=== PATIENT | female | born 1960 | race Caucasian/White ===

== ENCOUNTER → 2016-04-29 | Day surgery (SDC) | payer OTHER ==
--- NOTE | 2016-04-28 16:04 | History & Physical Pre-Op ---
General Information and HPI History of Present Illness: patient presents for evaluation of an incisional hernia. She states the hernia has been present for at least 3 years. She has a past surgical history significant for laparoscopic Eva-en-Y bypass, open in 2007. She had failure of weight loss and subsequently underwent lap band over bypass [place] [address] Pierre Welch. Since then she has been observed and notes no change to the hernia. She hears gurgling in the hernia no pain. No change to her bowel function. She occasionally gets nausea and vomiting but she attributes it to over eating. Allergies/Medications Allergies: Coded Allergies: aspirin (CONJUNCTIVAL SWELLING 04/23/16) cephalexin (From KEFLEX) (RASH 04/23/16) Uncoded Allergies: SEEDS (UNKNOWN 02/15/13) Home Med list Amitriptyline HCl 25 MG TABLET 1 TAB PO QPM TMJ (Reported) Bupropion HCl (Wellbutrin XL) (Unknown Strength) TAB.ER.24H (Unknown Dose) PO QPM DEPRESSION (Reported) Escitalopram Oxalate (Lexapro) 20 MG TABLET 1 TAB PO QPM DEPRESSION (Reported ) Multivitamin (Multi-Day Vitamins) 1 EACH TABLET 1 TAB PO DAILY SUPPLEMENT ( Reported) Tramadol HCl (Ultram) 50 MG TABLET 1 TAB PO PRN PAIN (Reported) Past History Medical History Psychiatric: anxiety History of MRSA: No History of VRE: No History of CDIFF: No Isolation History: Standard Influenza Vaccine: 01/28/13 Surgical History Pertinent Surgical History: none (laparoscopic gastric bypass), , laparoscopic gastric bypass Past Family/Social History Family History Relations & Conditions if any MOTHER Relation not specified for: FHx: lung cancer Psychosocial History Services at Home None Smoking Status: Never Smoked Review of Systems Review of Systems: Patient reports weight gain (50lbs) but reports no fatigue, no fever, no night sweats, no significant weight loss, and no exercise intolerance. She reports no abnormal moles, no jaundice, no hives, no eczema, and no rashes. She reports no dry eyes, no irritation, no vision change, and no discharge. She reports no hearing loss, no ear pain, no sneezing, no frequent nosebleeds, no nose/sinus problems, no bleeding gums, no snoring, no dry mouth, no mouth ulcers, no oral abnormalities, no teeth problems, no headaches, and no sore throat. She reports no cough, no wheezing, no shortness of breath, and no coughing up blood. She reports no chest pain, no arm pain on exertion, no shortness of breath when walking, no shortness of breath when lying down, no palpitations, and no leg swelling. She reports no abdominal pain, no vomiting, no vomiting blood, normal appetite, no diarrhea, no constipation, no rectal bleeding, and no history of GERD. She reports no incontinence, no difficulty urinating, no hematuria, and no increased frequency. She reports no muscle aches, no muscle weakness, no arthralgias/joint pain, and no back pain. Exam & Diagnostic Data Last 24 Hrs of Vital Signs/I&O Patient is a 55-year-old female. Constitutional: General Appearance: morbidly obese. Level of Distress: no acute distress. Ambulation: ambulating normally. Head: Head: normocephalic and atraumatic. Neck: Neck: supple, trachea midline, no masses, and full range of motion. Thyroid: no enlargement or nodules and non-tender. Lymph Nodes: no cervical LAD, supraclavicular LAD, axillary LAD, or inguinal LAD. Cardiovascular: Heart Auscultation: regular rate and rhythm. Lungs: Respiratory effort: no dyspnea. Back: Thoracolumbar Appearance: normal curvature. Abdomen: Inspection and Palpation: no tenderness, guarding, masses, rebound tenderness, or CVA tenderness and soft and non-distended. Bowel Sounds: normal. Liver: non-tender and no hepatomegaly. Spleen: non-tender and no splenomegaly. Hernia: incisional (epigastric hernia with bowel contents. It is reducible. Fascial defect measures 5 cm. Palpable lap band port in the right upper quadrant ). Skin: Inspection and palpation: no rash, lesions, ulcer, induration, nodules, jaundice, or abnormal nevi and good turgor. Musculoskeletal:: Extremities: no cyanosis, edema, varicosities, or palpable cord. Motor Strength and Tone: normal tone and motor strength. Joints, Bones, and Muscles: no contractures, malalignment, tenderness, or bony abnormalities and normal movement of all extremities. Assessment/Plan Assessment/Plan: Incisional hernia - recommend laparoscopic repair with mesh. She was like to plan for surgical repair in early April. She will call in March to schedule surgery K43.2: Incisional hernia without obstruction or gangrene Discussion Notes Discussed the pathophysiology of hernias and the need for mesh repair. He understands the permanent nature of mesh. Discussed the risks of surgery including recurrence of the hernia, bleeding and infection. He understands that if mesh infection occurs, removal will necessary. He understands the need for general anesthesia. Discussed emergent complications of oberved hernias including increasing pain, distention, nausea and vomiting. Discussed erythema of hernia site as well. Patient understands to call me urgently or go to ER should these findings develop. As Ranked By This Provider Problem List: 1. Incisional hernia
[~2016-04-29] VITALS: Ht 160 cm; Wt 131.5 kg
[~2016-04-29] MED LIST: AMITRIPTYLINE H25 M2 PO; AUGMENTIN 875-1 EACH PO; LEXAPRO20 M1 PO; MULTI-DAY VITA1 EACH PO; PERCOCET 5-3251 EACH PO; ULTRAM50 M1 PO; WELLBUTRIN XL300 M2 PO
--- NOTE | 2016-04-29 13:43 | Operative Report ---
Operative/Inv Procedure Report Surgery Date: 04/29/16 Name of Procedure: 1. Laparoscopic incisional hernia repair 2. Laparoscopic incarcerated umbilical hernia repair Pre-Operative Diagnosis: Incisional hernia Post-Operative Diagnosis: Same Large incarcerated periumbilical hernia Estimated Blood Loss: less than 50ml Surgeon/Superintendent [employer]: JUAN MCCARTY,JANA Das/Hiro CALDERA Anesthesia: general endotracheal tube Implants: 15 cm Parietex mesh to cover the epigastric incisional hernia 12 cm Parietex mesh to repair the incarcerated periumbilical hernia Operative/Procedure Note Note: After consent is brought to the operating room laid supine. Gen. anesthesia was obtained and her abdomen was prepped and draped. The left upper quadrant was able to local anesthesia and a transverse incision. We gained access to the peritoneum using a 12 mm optical trocar. Pneumoperitoneum was achieved. 2, 5 mm ports were placed in the left lower quadrant after local anesthesia instilled under direct vision the camera. The abdomen was explored. Visualization was difficult due to her morbid obesity and high insufflation pressures require to insufflate her abdomen. There was a very large epigastric incisional hernia related to her prior gastric bypass. There is also a visible lap band catheter that obscured our view. His able to dissect some bowel off the abdominal wall sharp dissection to allow the catheter to follow more superiorly. Inferior to the main incisional defect there was a separate periumbilical hernia with incarcerated omentum. First dissected the epigastric site. The adhesions were taken down with cautery and sharp dissection. There were 3 fascial defects the largest of which was 5 cm in diameter. There are 2 other fascial defects superior to this both measuring 1.5-2 cm. Everything was reduced out of these defects and the peritoneum cleared of intraperitoneal fat to expose healthy fascia. Then turned attention to the umbilical hernia. This was the more difficult hernia to reduce as there was a large amount of incarcerated omentum through multiple fascial defects. Eventually we amputated the tissues and then delivered the incarcerated contents with blunt dissection. All the extracted fatty tissue was then placed in Endo Catch bag and delivered from the perineal cavity. We measured the defects. 2 ideally cover both hernia defects with single piece of mesh would require a 25 x 15 cm mesh. However the largest measuring had was 25 x 20 and it would be a little bit too wide to place in her abdominal cavity. So elected to repair each hernia defect individually. A 15 cm Parietex was mesh was chosen for the epigastric incisional hernia. A 12 cm Parietex mesh was chosen for the periumbilical defect. Both had 0 [place]-Ven[place]h sutures anchored to them. Each hydrated rolled up and placed the perineal cavity. The transfixion sutures were then brought up percutaneously through the abdominal wall in a sequential fashion. She was then tied down mesh was properly positioned on each defect. Both mesh were then circumferentially adhered to the abdominal wall with the absorbable tackers in a double crown fashion. Once were happy the placement of mesh the gas was allowed to escape. Ports were delivered and the fascia was closed 0 Vicryl suture. Skin incisions closed with 4-0 Vicryl. Steri-Strips and sterile dressing applied. Sponge and needle counts are correct Findings: Two separate/distinct fascial defects requiring individual repair CC: EDEL MCCARTY,DEE Victoria
== END ==
LOC: STS 01:46
DX: K43.2 Incisional hernia without obstruction or gangrene (principal); K42.0 Umbilical hernia with obstruction, without gangrene; Z98.84 Bariatric surgery status; E66.01 Morbid (severe) obesity due to excess calories; Z68.43 Body mass index [BMI] 50.0-59.9, adult
CPT/HCPCS: C1781; J0131; J1100; J2250; J2405

== ENCOUNTER 2016-06-08 16:12 | Inpatient (IN) | payer OTHER ==
[~2016-06-08] VITALS: Ht 160 cm; Wt 152.9 kg
[~2016-06-08 16:12] MED LIST changes: -AUGMENTIN 875-1 EACH PO; -PERCOCET 5-3251 EACH PO
--- NOTE | 2016-06-08 16:39 | NUR ---
C/O LEFT LOWER QUADRANT ABDOMINAL PAIN X 3 HOURS WITH NAUSEA, NO VOMITING OR DIARRHEA. S/P HERNIA REPAIR TO STOMACH AND UMBILICAL AREA BY DR. MARTINEZ. (1 MONTH AGO). PMH:GASTRIC BYPASS, LAP BAND.
--- NOTE | 2016-06-08 17:25 | NUR ---
VERENICE CAI EVALUATED PT
--- NOTE | 2016-06-08 17:31 | ED GI/GU/ABDOMINAL COMPLAINT ---
History of Present Illness General Chief Complaint: Abdominal Pain/Flank Pain Stated Complaint: LOWER LT ABDOMINAL PAIN Source: patient Exam Limitations: no limitations Vital Signs & Intake/Output Vital Signs & Intake/Output Vital Signs Date Time Temp Pulse Resp B/P Pulse O2 O2 Flow FiO2 Ox Delivery Rate 06/11 0400 95 Nasal 1.0L Cannula 06/11 0000 100 Nasal 1.0L Cannula 06/11 0000 98.3 100 16 92/58 100 Nasal 1.0L Cannula 06/10 2000 95 Room Air Room Air 06/10 1600 94 Room Air Room Air 06/10 1600 97.6 108 22 94/52 96 Room Air Room Air 06/10 1200 97 Nasal 1.0L Cannula ED Intake and Output 06/11 0000 06/10 1200 Intake Total 2641 2010 Output Total 920 390 Balance 1721 1621 Intake, IV 2631 2010 Intake, Oral 10 0 Number 0 0 Bowel Movements Output, 95 50 Drainage Output, Stool 10 Output, Urine 815 340 Allergies Coded Allergies: aspirin (CONJUNCTIVAL SWELLING 04/23/16) cephalexin (From KEFLEX) (RASH 04/23/16) Uncoded Allergies: SEEDS (UNKNOWN 02/15/13) Reconcile Medications Amitriptyline HCl 25 MG TABLET 1 TAB PO QPM TMJ (Reported) Bupropion HCl (Wellbutrin XL) (Unknown Strength) TAB.ER.24H (Unknown Dose) PO QPM DEPRESSION (Reported) Escitalopram Oxalate (Lexapro) 20 MG TABLET 1 TAB PO QPM DEPRESSION (Reported ) Multivitamin (Multi-Day Vitamins) 1 EACH TABLET 1 TAB PO DAILY SUPPLEMENT ( Reported) Oxycodone HCl/Acetaminophen (Percocet 5-325 MG Tablet) 5 MG-325 MG TABLET 2 TAB PO 4 TIMES/DAY PAIN (Reported) Tramadol HCl (Ultram) 50 MG TABLET 1 TAB PO PRN PAIN (Reported) Triage Note: C/O LEFT LOWER QUADRANT ABDOMINAL PAIN X 3 HOURS WITH NAUSEA, NO VOMITING OR DIARRHEA. S/P HERNIA REPAIR TO STOMACH AND UMBILICAL AREA BY DR. MARTINEZ. (1 MONTH AGO). Triage Nurses Notes Reviewed? yes ? N Is pt currently ? No Onset: Gradual Duration: hour(s): (4) Timing: remote history Quality/Severity: sharpness Severity Numbers: 8 Location: left lower quadrant Radiation: no radiation Activities at Onset: none Prior Abdominal Problems: similar symptoms Past Sexual History: Unobtainable at this time No Modifying Factors: none HPI: Patient is a 55-year-old female with history of diverticulitis presenting to the emergency department with chief complaint of left lower quadrant abdominal pain that started around 1 PM today. She reports it started in the periumbilical region and then migrated to the left lower quadrant. Pain has been constant sharp and stabbing. Positive nausea without vomiting. Denies fevers or chills. Denies chest pain palpitations or shortness of breath. She tried taking leftover Percocet which has not improved her pain. Denies any diarrhea. History of diverticulitis and this feels similar (RORO MARIO) Past History Travel History Traveled to [place] past 21 day No Medical History Any Pertinent Medical History? see below for history History of MRSA: No History of VRE: No History of CDIFF: No Influenza Vaccine: 01/28/13 Surgical History Surgical History: non-contributory Psychosocial History Who do you live with Spouse Services at Home None What is your primary language Micronesian Tobacco Use: Never used ETOH Use: denies use Family History Family History, If Any: MOTHER Relation not specified for: FHx: lung cancer Hx Contributory? No (RORO MARIO) Review of Systems Review of Systems Constitutional: Reports: no symptoms. Comments Review of systems: See HPI, All other systems negative. Constitutional, no chills fever or weight loss HEENT: No visual changes no sore throat no congestion Cardiovascular: No chest pain ,palpitation , orthopnea or ankle swelling Skin, no jaundice no rashes Respiratory: No dyspnea cough sputum or hemoptysis GI: no vomiting : No dysuria No hematuria Muscle skeletal: no back pain, no neck pain, Neurologic: No numbness no confusion, no headaches Psych: No stress anxiety Immunology: No splenectomy or history of AIDS (RORO MARIO) Physical Exam Physical Exam General Appearance: well developed/nourished, no apparent distress, alert, awake , comfortable Gastrointestinal: normal bowel sounds, soft, guarding, tenderness Comments: Well-developed well-nourished person in no acute distress HEENT: Pupils equally round and reactive to light and accommodation. Nose is atraumatic. Neck: Normal inspection Back: Nontender, no CVA tenderness. Full range of motion Cardiovascular: Regular rate and rhythms no murmurs rubs or gallops, normal JVP Respiratory: Chest nontender. No respiratory distress.breath sounds clear to auscultation bilaterally Abdomen: Soft, tender to palpation OF lower quadrant with moderate guarding, no rebound tenderness. Nondistended, no appreciable organomegaly. HYPOACTIVE bowel sounds. Large ventral hernia palpated in the middle aspect of the abdomen with seroma. Extremity: No edema Neuro: Alert oriented x3 Skin: No appreciable rash on exposed skin, skin is warm and dry. Psych: Mood and affect is normal, memory and judgment is normal. Core Measures ACS in differential dx? No Severe Sepsis Present: Yes BC x2: Yes Lactic Acid x2: Yes IV ABX Broad Spectrum: Yes NS/LR Started: Yes Septic Shock Present: No (TRELL CALDERA,RORO) Progress Differential Diagnosis: DIVERTICULITIS, DIVERTICULOSIS, OVARIAN CYSTS, HERNIA, COLITIS Plan of Care: Orders Procedure Date/time Status Nothing by Mouth 06/10 D Active THERAPIST ORDERS 06/10 UNK Complete PT Evaluate & Treat 06/10 UNK Active Misc Message 06/10 UNK Active MISSING MEDICATION FORM 06/10 UNK Active Current Medications Sig/Emmett Start time Last Medication Dose Stop Time Status Admin Acetaminophen 1,000 MG Q6P PRN 06/09 0545 AC (Ofirmev) Ondansetron HCl 4 MG Q6P PRN 06/09 0545 AC (Zofran) Laboratory Tests 06/11/16 0840: CBC w Diff NO MAN DIFF REQ, RBC 3.47 L, MCV 86.7, MCH 28.3, RDW 14.6 H, MPV 8.2, Gran % 83.0 H, Lymphocytes % 9.5 L, Monocytes % 5.2, Eosinophils % 2.0, Basophils % 0.3, Absolute Granulocytes 6.0, Absolute Lymphocytes 0.7 L, Absolute Monocytes 0.4, Absolute Eosinophils 0.1, Absolute Basophils 0, PUBS MCHC 32.7 L 06/11/16 0510: Anion Gap 5, Estimated GFR > 60, Glucose 94, Calcium 7.2 L, Phosphorus 2.2 L, Magnesium 2.0, Total Bilirubin 0.6, AST 17, ALT 27, Albumin 1.9 L Patient with perforated power, free air. Will go to the OR, then to ICU. Dr. Burgos evlauted patient in the ED. Broad spectrum abx started. (BRADLY MCCARTY,PACO) Diagnostic Imaging: Viewed by Me: CT Scan. Discussed w/RAD: CT Scan. Radiology Impression: PATIENT: MUNIR SHAH PRESENT AGE: 55 PATIENT ACCOUNT NO: [id number] : 59 LOCATION: [facility] ORDERING PHYSICIAN: RORO CALDERA SERVICE DATE: 06/08/16 EXAM TYPE: CAT - CT ABD & PELVIS W IV CONTRAST EXAMINATION: CT ABDOMEN AND PELVIS WITH CONTRAST CLINICAL INFORMATION: Left lower quadrant pain. Nausea. Past history of hernia surgery. History of Lap-Band surgery. COMPARISON: None TECHNIQUE: Multidetector volumetric imaging was performed of the abdomen and pelvis before and after the IV administration of 95 mL of Optiray 320 intravenous contrast. Sagittal and coronal reformatted images were obtained on the technologist's workstation. DLP: 1407.62 mGy-cm FINDINGS: LUNG BASES: The visualized lung bases are unremarkable. LIVER, GALLBLADDER, AND BILIARY TREE: The liver is normal in size, shape, and attenuation. No focal hepatic lesion or biliary ductal dilatation is present. Status post cholecystectomy. No bile duct dilatation. Extrahepatic CBD measures 6 mm. No calcified stone within the duct. PANCREAS: Unremarkable. SPLEEN: Unremarkable. ADRENAL GLANDS: Unremarkable. KIDNEYS AND URETERS: The kidneys are normal in size, shape, and attenuation. No hydronephrosis, hydroureter, or calculi are seen. No perinephric stranding. BLADDER: Unremarkable. GASTROINTESTINAL TRACT, ABDOMINAL WALL/MESENTERY: A small amount of free fluid in the abdomen. Fluid collects around the liver and causes a hazy mesenteric edema in the mid mesentery. There is a ventral wall hernia that has the largest collection of fluid in the upper central abdomen. This collection is about 12 cm cephalad to the umbilicus. The collection measures 7.7 x 5.1 x 8.5 cm. This has a small fat fluid level within the hernia sac. There is edema in the subcutaneous tissues around the umbilicus. There is free air in the abdomen. In the left lower quadrant, there is an irregular collection suspicious for an abscess measuring 8 x 5.6 x 9.6 cm (axial image 438 (3) and coronal image 43). This does lie close to the descending colon and sigmoid where there are diverticula; suspect the collection is related to a perforated diverticulitis therefore. There is surrounding edema in the mesentery around this collection. Gastric band present. This is in good position around the cardia of the stomach. Slight dilatation of the distal esophagus as expected for gastric band placement. The appendix is normal. LYMPH NODES: Small mesenteric and retroperitoneal lymph nodes. No bulky lymphadenopathy. VASCULAR: IVC filter present. PELVIC VISCERA: Uterus is anteverted. No adnexal abnormality. OSSEOUS STRUCTURES: Bridging degenerative osteophytes of the lower thoracic spine. IMPRESSION: 1. Free air. There are focal inflammatory changes of the mesentery in the left lower quadrant surrounding a collection that is suspicious for perforated diverticulitis with localized abscess. 2. Small amount of free fluid. 3. Large collection of fluid in a ventral wall hernia cephalad to the umbilicus at the midline. 4. Status post gastric band in good position. 5. Status post cholecystectomy. Initial ED EKG: SINUS TACHY Comments: 06/08/2016 5:41:41 PM arrival patient medicated with IV morphine, IV Zofran and IV fluids. Patient will go for CT to rule out diverticulitis. Patient has history of diverticulitis in the past. He fluid initiated. Patient afebrile. 06/08/2016 6:23:12 PM patient reports that the morphine is helping slightly but would like something stronger. Patient given IV Dilaudid 1 mg. IV fluids still infusing. Still pending CT results. Patient has no elevation in white blood cell count. Lactic acid is negative. 06/08/2016 8:33:45 PM spoke with radiology who called regarding CT scan results. Patient has perforated diverticulitis with abscess collection. Called Donnie Burgos MD visualized the CAT scan. Patient will likely need to go to the operating room for perforated diverticulitis. IV Unasyn started at this time secondary to allergy to cephalosporins. Patient was updated informed about possible outcomes. Surgical physician assistant quality manager page. Patient now spiking a fever. IV Tylenol ordered. 06/08/2016 9:15:06 PM added on PT PTT, type and screen. Also added on EKG and chest x-ray. Patient was seen and evaluated by Dr. Contreras as well. (TRELL CALDERA,RORO) Departure Departure Disposition: STILL A PATIENT Condition: Stable Clinical Impression Primary Impression: Diverticulitis of colon with perforation Referrals: DEE HOLLINGSWORTH MD (PCP/Family) Departure Forms: Customer Survey General Discharge Information OR/GI Note Spoke With: DONNIE BURGOS MD ED Treatment Decision: MUNIR SHAH requires urgent operative management or an emergent procedure that cannot be performed in the Emergency Room setting. Transport To: [facility] (RORO MARIO) PA/COOLER SERVICE SUPERVISOR Co-Sign Statement Statement: ED Attending supervision documentation- [X] I saw and evaluated the patient. I have also reviewed all the pertinent lab results and diagnostic results. I agree with the findings and the plan of care as documented in the PA's/COOLER SERVICE SUPERVISOR's documentation. [X] I have reviewed the ED Record and agree with the PA's/COOLER SERVICE SUPERVISOR's documentation. [] Additions or exceptions (if any) to the PAs/COOLER SERVICE SUPERVISOR's note and plan are summarized below: [] (PACO CONTRERAS MD) Critical Care Note Critical Care Note Critical Care Time: 75-104 min (RORO MARIO) Departure Departure Disposition: STILL A PATIENT Condition: Stable Clinical Impression Primary Impression: Diverticulitis of colon with perforation Referrals: DEE HOLLINGSWORTH MD (PCP/Family) Departure Forms: Customer Survey General Discharge Information OR/GI Note Spoke With: DONNIE BURGOS MD ED Treatment Decision: MUNIR SHAH requires urgent operative management or an emergent procedure that cannot be performed in the Emergency Room setting. Transport To: [facility] (RORO MARIO) PA/COOLER SERVICE SUPERVISOR Co-Sign Statement Statement: ED Attending supervision documentation- [X] I saw and evaluated the patient. I have also reviewed all the pertinent lab results and diagnostic results. I agree with the findings and the plan of care as documented in the PA's/COOLER SERVICE SUPERVISOR's documentation. [X] I have reviewed the ED Record and agree with the PA's/COOLER SERVICE SUPERVISOR's documentation. [] Additions or exceptions (if any) to the PAs/COOLER SERVICE SUPERVISOR's note and plan are summarized below: [] (PACO CONTRERAS MD) Critical Care Note Critical Care Note Critical Care Time: 75-104 min (RORO MARIO)
[2016-06-08 18:35] LABS: ABSOLUTE BASOPHIL COUNT 0 /CUMM (0.0-0.2); ABSOLUTE EOSINOPHIL COUNT 0 /CUMM (0.0-0.7); ABSOLUTE GRANULOCYTE CT 6.6 /CUMM (1.4-6.5); ABSOLUTE LYMPH COUNT 0.4 /CUMM (1.2-3.4); ABSOLUTE MONOCYTE COUNT 0.4 /CUMM (0.10-0.60); BASOPHIL % 0 % (0.0-2.0); EOSINOPHIL % 0.1 % (0-5); HEMATOCRIT 42.9 % (37-47); MEAN CORPUSCULAR HGB 27.9 PG (27.0-31.0); MEAN CORPUSCULAR HGB CONC 32.4 G/DL (33.0-37.0); MEAN CORPUSCULAR VOLUME 86.2 FL (81.0-99.0); MEAN PLATELET VOLUME 8.7 FL (7.4-10.4); PLATELET COUNT 217 /CUMM (130-400); RBC DISTRIBUTION WIDTH 14.1 % (11.5-14.5); RED BLOOD CELL CT 4.98 /CUMM (4.20-5.40); WHITE BLOOD CELL COUNT 7.4 /CUMM (4.8-10.8)
[2016-06-08 18:36] LABS: GRANULOCYTE % 88.9 % (42.2-75.2)
--- NOTE | 2016-06-08 18:38 | NUR ---
IV ESTBLISHED. MEDICATED WITH 4MG ZOFRAN FOR NAUSEA AND 2MG MORPHINE FOR PAIN. WILL CONTINUE TO MONITOR
[2016-06-08] MEDS ORDERED: PERCOCET 5-3251 EACH PO (18:51)
--- NOTE | 2016-06-08 19:35 | NUR ---
PT TO AND FROM CT
--- NOTE | 2016-06-08 21:00 | CT SCAN REPORT ---
EXAMINATION: CT ABDOMEN AND PELVIS WITH CONTRAST CLINICAL INFORMATION: Left lower quadrant pain. Nausea. Past history of hernia surgery. History of Lap-Band surgery. COMPARISON: None TECHNIQUE: Multidetector volumetric imaging was performed of the abdomen and pelvis before and after the IV administration of 95 mL of Optiray 320 intravenous contrast. Sagittal and coronal reformatted images were obtained on the technologist's workstation. DLP: 1407.62 mGy-cm FINDINGS: LUNG BASES: The visualized lung bases are unremarkable. LIVER, GALLBLADDER, AND BILIARY TREE: The liver is normal in size, shape, and attenuation. No focal hepatic lesion or biliary ductal dilatation is present. Status post cholecystectomy. No bile duct dilatation. Extrahepatic CBD measures 6 mm. No calcified stone within the duct. PANCREAS: Unremarkable. SPLEEN: Unremarkable. ADRENAL GLANDS: Unremarkable. KIDNEYS AND URETERS: The kidneys are normal in size, shape, and attenuation. No hydronephrosis, hydroureter, or calculi are seen. No perinephric stranding. BLADDER: Unremarkable. GASTROINTESTINAL TRACT, ABDOMINAL WALL/MESENTERY: A small amount of free fluid in the abdomen. Fluid collects around the liver and causes a hazy mesenteric edema in the mid mesentery. There is a ventral wall hernia that has the largest collection of fluid in the upper central abdomen. This collection is about 12 cm cephalad to the umbilicus. The collection measures 7.7 x 5.1 x 8.5 cm. This has a small fat fluid level within the hernia sac. There is edema in the subcutaneous tissues around the umbilicus. There is free air in the abdomen. In the left lower quadrant, there is an irregular collection suspicious for an abscess measuring 8 x 5.6 x 9.6 cm (axial image 438 (3) and coronal image 43). This does lie close to the descending colon and sigmoid where there are diverticula; suspect the collection is related to a perforated diverticulitis therefore. There is surrounding edema in the mesentery around this collection. Gastric band present. This is in good position around the cardia of the stomach. Slight dilatation of the distal esophagus as expected for gastric band placement. The appendix is normal. LYMPH NODES: Small mesenteric and retroperitoneal lymph nodes. No bulky lymphadenopathy. VASCULAR: IVC filter present. PELVIC VISCERA: Uterus is anteverted. No adnexal abnormality. OSSEOUS STRUCTURES: Bridging degenerative osteophytes of the lower thoracic spine. IMPRESSION: 1. Free air. There are focal inflammatory changes of the mesentery in the left lower quadrant surrounding a collection that is suspicious for perforated diverticulitis with localized abscess. 2. Small amount of free fluid. 3. Large collection of fluid in a ventral wall hernia cephalad to the umbilicus at the midline. 4. Status post gastric band in good position. 5. Status post cholecystectomy. This critical result was discussed with VERENICE Garcia on 06/08/2014 at 8:15 PM and it was ascertained that the content and urgency of the report was understood at the time of direct communication.
[2016-06-08 21:59] LABS: PT 11.8 SEC (9.4-12.5); PTT 30 SEC (25-37)
--- NOTE | 2016-06-08 22:14 | NUR ---
LACTIC ACID 2.4
--- NOTE | 2016-06-08 22:19 | RADIOLOGY REPORT ---
EXAMINATION: XR PORTABLE CHEST CLINICAL INFORMATION: Preop COMPARISON: None TECHNIQUE: Portable AP portable view of the chest was obtained. 9:34 PM FINDINGS: No significant abnormality is noted involving the heart, lungs, mediastinum, bony thorax or soft tissues. IMPRESSION: No acute change of chest.
--- NOTE | 2016-06-08 22:59 | History & Physical Pre-Op ---
General Information and HPI History of Present Illness: CC: abdominal pain HPI: 55-year-old nondiabetic nonsmoker with a history of gastric bypass lap band and more recently microscopic mesh repair of a large ventral incisional hernia, a little over a month ago, was doing well overall no constipation no fevers no sweats no unusual abdominal pain other than the soreness expected from the trocar sites, and she has a remote history of diverticulitis over 10 years ago. Today around 1:00 after having a small exam which she felt some gas pains which traveled to her left side persisted and intensified so she came to the ER. This did not feel like her diverticulitis episodes in the past. Pain is constant and worse on movement but still localized only to the left side of her abdomen no nausea no vomiting no on the ER she is having fever and sweats. Pain does not radiate to her back. Otherwise no changes bowel habits, weight or appetite. I've reviewed the [facility]. No history of GERD, PUD, bleeding problems, heart disease or issues with anesthesia. Allergies/Medications Allergies: Coded Allergies: aspirin (CONJUNCTIVAL SWELLING 04/23/16) cephalexin (From KEFLEX) (RASH 04/23/16) Uncoded Allergies: SEEDS (UNKNOWN 02/15/13) Home Med list Amitriptyline HCl 25 MG TABLET 1 TAB PO QPM TMJ (Reported) Bupropion HCl (Wellbutrin XL) (Unknown Strength) TAB.ER.24H (Unknown Dose) PO QPM DEPRESSION (Reported) Escitalopram Oxalate (Lexapro) 20 MG TABLET 1 TAB PO QPM DEPRESSION (Reported ) Multivitamin (Multi-Day Vitamins) 1 EACH TABLET 1 TAB PO DAILY SUPPLEMENT ( Reported) Oxycodone HCl/Acetaminophen (Percocet 5-325 MG Tablet) 5 MG-325 MG TABLET 2 TAB PO 4 TIMES/DAY PAIN (Reported) Tramadol HCl (Ultram) 50 MG TABLET 1 TAB PO PRN PAIN (Reported) Past History Medical History History of MRSA: No History of VRE: No History of CDIFF: No Influenza Vaccine: 01/28/13 Surgical History Pertinent Surgical History: non-contributory Past Family/Social History Family History Relations & Conditions if any MOTHER Relation not specified for: FHx: lung cancer Psychosocial History Services at Home None ETOH Use: denies use Review of Systems Review of Systems: Constitutional: No fever, sweats or weight loss ENMT: No sore throat Cardiovascular: No chest pain, palpitations or leg swelling Respiratory: No shortness of breath, cough, or sputum or dyspnea on exertion GI: No GERD or bleeding per rectum : No dysuria or hematuria Musculoskeletal: No new muscle weakness, bone or joint pain Skin / Breast: No jaundice, rashes or itching Psychiatric: No history of drug or alcohol abuse no depression or anxiety Hematologic / lymphatic system: No problems with excessive bleeding, bruising, or blood clots Exam & Diagnostic Data Last 24 Hrs of Vital Signs/I&O I reviewed Vital Signs Date Time Temp Pulse Resp B/P Pulse O2 O2 Flow FiO2 Ox Delivery Rate 06/08 2204 140 16 140/68 98 Room Air 06/08 2110 101.8 06/08 203 101.8 125 20 154/93 93 Room Air 06/08 1637 95.9 139 28 104/77 100 Room Air Physical Exam: Constitutional: pleasant, no acute distress, conversant Eyes: sclera anicteric ENMT: ears and nose atraumatic, moist mucous membranes, good dentition, no lip lesions Neck: Supple, trachea is midline, no cervical or supraclavicular adenopathy and no palpable thyromegaly Cardiovascular: S1, S2, no murmurs, no peripheral edema Respiratory: clear to auscultation with normal respiratory effort and no intercostal retractions GI: abdomen soft, tender to light palpation left mid to lower abdomen, guarding, nondistended, no palpable hepatosplenomegaly Extremities / lymphatics: symmetrically warm, free range of motion no peripheral edema, no cervical, supraclavicular, axillary, or inguinal adenopathy Musculoskeletal: Did not evaluate the gait and station, no digital cyanosis, good muscle strength and tone no atrophy, motor grossly 5 out of 5 throughout Skin: no jaundice, no rashes warm, nondiaphoretic, no areas of erythema or induration Psychiatric: mood and affect are appropriate and alert and oriented to person place and time Last 24 Hrs of Labs/Scottie: I reviewed Laboratory Tests 06/08/162146: Lactic Acid 2.4 H 06/08/161844: Urine Color YEL, Urine Clarity HAZY H, Urine pH 6.0, Ur Specific [place] 1.025, Urine Protein NEG, Urine Ketones NEG, Urine Nitrite POS H, Urine Bilirubin NEG, Urine Urobilinogen 0.2, Ur Leukocyte Esterase NEG, Ur Microscopic SEDIMENT EXAMINED, Ur Epithelial Cells MANY H, Urine Hemoglobin NEG, Urine Glucose NEG 06/08/16 1805: Anion Gap 10, Estimated GFR > 60, BUN/Creatinine Ratio 26.7 H, Glucose 129 H, Lactic Acid 1.7, Calcium 8.8, Total Bilirubin 0.9, AST 37 H, ALT 31, Alkaline Phosphatase 103, Total Protein 7.1, Albumin 3.7, Globulin 3.4, Albumin/Globulin Ratio 1.1, PT 11.8, INR 1.13, APTT 30, CBC w Diff NO MAN DIFF REQ, RBC 4.98, MCV 86.2, MCH 27.9, RDW 14.1, MPV 8.7, Gran % 88.9 H, Lymphocytes % 5.8 L, Monocytes % 5.2, Eosinophils % 0.1, Basophils % 0 L, Absolute Granulocytes 6.6 H, Absolute Lymphocytes 0.4 L, Absolute Monocytes 0.4, Absolute Eosinophils 0, Absolute Basophils 0, PUBS MCHC 32.4 L Microbiology 06/08 2099 BLOOD: Blood Culture - RECD 06/08 2049 BLOOD: Blood Culture - RECD Assessment/Plan Assessment/Plan: Studies I reviewed the CT scan from today on PACS myself which shows an irregular collection of gas and semisolid material in the distal descending / proximal sigmoid, there is some surrounding stranding and some of the gas tracks up towards the middle superiorly, she has a long tortuous sigmoid colon. You can see the catheter for the lap band, and you can see the recently placed mesh and subcutaneous seroma. Impression is acute abdomen. I explained to the patient that this is a potentially life-threatening infection for which I recommend a laparotomy probable colostomy because of the location. I feel antibiotics often alone are not enough, she is showing signs of developing sepsis. I also discussed the possibility of a postoperative infection whether superficial or deep, this is also related to the initial severity and may also appear even a week later after an initial interval of well-being during the recovery. I explained the operation which is already a contaminated case and we may encounter more adhesions given the recent surgery also discussed risks of inadvertent injury to surrounding surrounding structures such as bowel and blood vessels and ureter. For example she may need a repeat abdominal washout, discussed the nature of the colostomy initial healing but also that eventually it's reversible. We also discussed the potential risks, benefits and alternatives to the procedure and surgery in general, issues that included but were not limited to, anesthetic risks hemorrhage requiring transfusion, the risk of transfusion itself, infection, heart attack, stroke, . As Ranked By This Provider Problem List: 1. Peritonitis 2. Perforated sigmoid colon
--- NOTE | 2016-06-08 23:01 | NUR ---
MUNIR SHAH Nurse Note by: SON ROUSE I agree with the [employer] IN[employer] findings/evaluation of this patient's condition. Entered by: SON ROUSE Date: 06/08/16 Time: 2126
--- NOTE | 2016-06-09 06:05 | Admission Core Measures ---
Admission Lab Results I reviewed the following labs: Laboratory Tests 06/08 06/08 2147 1845 Chemistry Lactic Acid (0.7 - 2.1 mmol/L) 2.4 H Urines Urine Color (YEL,AMB,STR) YEL Urine Clarity (CLEAR) HAZY H Urine pH (5.0 - 8.0) 6.0 Ur Specific [place] (1.001 - 1.035) 1.025 Urine Protein (NEG,<30 MG/DL) NEG Urine Ketones (NEG) NEG Urine Nitrite (NEG) POS H Urine Bilirubin (NEG) NEG Urine Urobilinogen (0.1 - 1.0 EU/dl) 0.2 Ur Leukocyte Esterase (NEG) NEG Ur Microscopic SEDIMENT EXAMINED Ur Epithelial Cells (NONE,FEW) MANY H Urine Hemoglobin (NEG) NEG Urine Glucose (N MG/DL) NEG 06/08 1805 Chemistry Sodium (137 - 145 mmol/L) 140 Potassium (3.5 - 5.1 mmol/L) 4.4 Chloride (98 - 107 mmol/L) 101 Carbon Dioxide (22 - 30 mmol/L) 29 Anion Gap (5 - 16) 10 BUN (7 - 17 mg/dL) 16 Creatinine (0.5 - 1.0 mg/dL) 0.6 Estimated GFR (>60 ml/min) > 60 BUN/Creatinine Ratio (7 - 25 %) 26.7 H Glucose (65 - 99 mg/dL) 129 H Lactic Acid (0.7 - 2.1 mmol/L) 1.7 Calcium (8.4 - 10.2 mg/dL) 8.8 Total Bilirubin (0.2 - 1.3 mg/dL) 0.9 AST (14 - 36 U/L) 37 H ALT (9 - 52 U/L) 31 Alkaline Phosphatase (<127 U/L) 103 Total Protein (6.3 - 8.2 g/dL) 7.1 Albumin (3.5 - 5.0 g/dL) 3.7 Globulin (1.9 - 4.2 gm/dL) 3.4 Albumin/Globulin Ratio (1.1 - 2.2 %) 1.1 Coagulation PT (9.4 - 12.5 SEC) 11.8 INR (0.90 - 1.19) 1.13 APTT (25 - 37 SEC) 30 Hematology CBC w Diff NO MAN DIFF REQ WBC (4.8 - 10.8 /CUMM) 7.4 RBC (4.20 - 5.40 /CUMM) 4.98 Hgb (12.0 - 16.0 G/DL) 13.9 Hct (37 - 47 %) 42.9 MCV (81.0 - 99.0 FL) 86.2 MCH (27.0 - 31.0 PG) 27.9 RDW (11.5 - 14.5 %) 14.1 Plt Count (130 - 400 /CUMM) 217 MPV (7.4 - 10.4 FL) 8.7 Gran % (42.2 - 75.2 %) 88.9 H Lymphocytes % (20.5 - 51.1 %) 5.8 L Monocytes % (1.7 - 9.3 %) 5.2 Eosinophils % (0 - 5 %) 0.1 Basophils % (0.0 - 2.0 %) 0 L Absolute Granulocytes (1.4 - 6.5 /CUMM) 6.6 H Absolute Lymphocytes (1.2 - 3.4 /CUMM) 0.4 L Absolute Monocytes (0.10 - 0.60 /CUMM) 0.4 Absolute Eosinophils (0.0 - 0.7 /CUMM) 0 Absolute Basophils (0.0 - 0.2 /CUMM) 0 PUBS MCHC (33.0 - 37.0 G/DL) 32.4 L Admission Meds I reviewed the following Meds: Current Medications Sig/Emmett Start time Last Medication Dose Stop Time Status Admin Acetaminophen 1,000 MG Q6P PRN 06/09 544 AC (Ofirmev) Ampicillin Sodium/ 3,000 MG Q6 06/09 599 AC Sulbactam Sodium (Unasyn) Sodium Chloride 100 ML (Normal Saline 0.9%) Dextrose/Sodium 1,000 ML .Q8H 06/09 0445 AC Chloride (D5W-1/2 Normal Saline 1000ML) Heparin Sodium 5,000 UNIT Q8 06/09 599 AC (Porcine) Metronidazole 500 MG ONCE ONE 06/08 2029 CAN (Flagyl) 06/08 2128 N/A 1 UNIT (No Carrier) Ondansetron HCl 4 MG Q6P PRN 06/09 544 AC (Zofran) Sodium Chloride 500 ML BOLUS ONE 06/09 544 AC (Normal Saline 0.9%) 06/09 643 Acute Coronary Syndrome Inclusion Criteria ACS Diagnosis No Inpatient Core Measures LDL Reminder: If No, please order W/I first 24hr of stay Congestive Heart Failure Inclusion Criteria CHF Diagnosis No Cerebrovascular accident Inclusion Criteria CVA/TIA Diagnosis No Inpatient Core Measures Bedside Swallow Eval Reminder: If BSE failed, place ST order Antithrombotic Reminder: Order Antithrombotic Medication by end of day 2 Antithrombotic Reminder: Document Reason Antithrombotic Not ordered by end of day 2 AFIB/Flutter Reminder: If Present, add to problem list AFIB/Flutter Reminder: Order Anticoag Medication for pts with AFIB/Flutter Atherosclerosis Reminder: If Present, add to problem list LDL Reminder: If No, please order W/I first 24hr of stay PT Order Reminder: If No, please order Venous thromboembolism Inpatient Core Measures VTE Risk Factors: Age > 40, Obesity, Surgery VTE Prophylaxis Ordered Inpt Mech & Pharm No Mech VTE prophylaxis d/t No contraindications No VTE Pharm Prophylaxis d/t No contraindications Inclusion Criteria - Per Current guidelines, there needs to be overlap - treatment for the first 5 days of Warfarin therapy. - Parenteral Anticoagulation (IV or SC) needs to be - given along with Warfarin therapy. VTE Diagnosis No VTE Type NONE VTE Confirmed by (Test) NONE Problem List As ranked by this Provider includes Assessment & Plan 1. Perforated sigmoid colon 2. H/O resection of large bowel 3. S/P colostomy HOME MEDS Home Med List Amitriptyline HCl 25 MG TABLET 1 TAB PO QPM TMJ (Reported) Bupropion HCl (Wellbutrin XL) (Unknown Strength) TAB.ER.24H (Unknown Dose) PO QPM DEPRESSION (Reported) Escitalopram Oxalate (Lexapro) 20 MG TABLET 1 TAB PO QPM DEPRESSION (Reported ) Multivitamin (Multi-Day Vitamins) 1 EACH TABLET 1 TAB PO DAILY SUPPLEMENT ( Reported) Oxycodone HCl/Acetaminophen (Percocet 5-325 MG Tablet) 5 MG-325 MG TABLET 2 TAB PO 4 TIMES/DAY PAIN (Reported) Tramadol HCl (Ultram) 50 MG TABLET 1 TAB PO PRN PAIN (Reported)
[2016-06-09 06:36] LABS: ABSOLUTE BASOPHIL COUNT 0 /CUMM (0.0-0.2); ABSOLUTE EOSINOPHIL COUNT 0 /CUMM (0.0-0.7); ABSOLUTE GRANULOCYTE CT 6.5 /CUMM (1.4-6.5); ABSOLUTE LYMPH COUNT 0.5 /CUMM (1.2-3.4); ABSOLUTE MONOCYTE COUNT 0.3 /CUMM (0.10-0.60); BASOPHIL % 0 % (0.0-2.0); EOSINOPHIL % 0.1 % (0-5); GRANULOCYTE % 88.9 % (42.2-75.2); HEMATOCRIT 39.1 % (37-47); MEAN CORPUSCULAR HGB 28.4 PG (27.0-31.0); MEAN CORPUSCULAR HGB CONC 32.8 G/DL (33.0-37.0); MEAN CORPUSCULAR VOLUME 86.4 FL (81.0-99.0); MEAN PLATELET VOLUME 8.3 FL (7.4-10.4); PLATELET COUNT 221 /CUMM (130-400); RBC DISTRIBUTION WIDTH 14.2 % (11.5-14.5); RED BLOOD CELL CT 4.52 /CUMM (4.20-5.40); WHITE BLOOD CELL COUNT 7.3 /CUMM (4.8-10.8)
--- NOTE | 2016-06-09 07:01 | RADIOLOGY REPORT ---
EXAMINATION: XR PORTABLE CHEST CLINICAL INFORMATION: Post surgery intubation COMPARISON: 06/08/2016 TECHNIQUE: Portable AP view of the chest was obtained. FINDINGS: Endotracheal tube tip lies 3.5 cm above the sinan. The lungs are mildly hypoinflated with suspected bibasilar atelectasis. No additional dense consolidation is seen. No evidence of pneumothorax. Trace pleural effusions are difficult to exclude. Cardiac size is somewhat prominent for technique. No acute osseous findings are seen. IMPRESSION: Endotracheal tube tip 3.5 cm above the sinan. Bibasilar atelectasis.
[2016-06-09 08:00] VITALS: BP 110/60
--- NOTE | 2016-06-09 08:45 | NUR ---
Patient c/o 9/10 abdominal pain. SBP=90s-100s per latoya and 98/54 manually. Surgical Jocelyn CORNELIUS called. 1mg IV dilaudid ordered and given. 20 min later, BP 82/ doppler to R arm, 82/54 autocuff to R arm and LATOYA in L arm running SBP=93-99. Patient states pain has improved to 4/10. ADRYAN Banks informed, 500 ml NS bolus ordered and started now. Continuing to monitor.
--- NOTE | 2016-06-09 08:57 | Cons- CRCU ---
SALTY MCCARTY,[facility] 06/09/16 0857: General Information and HPI Consulting Request Date of Consult: 06/09/16 Requested By: Dr. Narayan Reason for Consult: Medical Co-Management/Patient Intubated Source of Information: patient Exam Limitations: patient intubated but awake and alert, at bedside History of Present Illness: 55-year-old woman with a past medical history of laparoscopic Eva-en-Y bypass in 2005, band in 07/04, chronic venous insufficiency, and lower exterimity vein closure in December 2012, non-smoker, microscopic mesh repair of a large ventral incisional hernia, on 04/29/16, has a remote history of diverticulitis over 10 years ago, presented to the ED overnight, aroud 1 am, with abdominal pains, crampy, diffuse, with radiation to the left side, consistent, in fact getting worse, aggravated with movement, not assicaited with nausea or vomiting. Denied fever, chills, chest pain, shortness of breath, palpitations. Denied any constipation prior to this pain. Abd/Pelvic CT scan showed free air, focal inflammatory changes of the mesentery in the left lower quadrant surrounding a collection that is suspicious for perforated diverticulitis with localized abscess. Small amount of free fluid. Large collection of fluid in a ventral wall hernia cephalad to the umbilicus at the midline. She was taken to the OR over night for Small Bowel Obstruction and was found to have the bowels full of stool. Post surgery, she was transferred to the ICU for further managemnet and monitoring. She is still intubated, but alert, awake and oriented, able to communicate with a white board and marker. Allergies/Medications Allergies: Coded Allergies: aspirin (CONJUNCTIVAL SWELLING 04/23/16) cephalexin (From KEFLEX) (RASH 04/23/16) Uncoded Allergies: SEEDS (UNKNOWN 02/15/13) Home Med List: Amitriptyline HCl 25 MG TABLET 1 TAB PO QPM TMJ (Reported) Bupropion HCl (Wellbutrin XL) (Unknown Strength) TAB.ER.24H (Unknown Dose) PO QPM DEPRESSION (Reported) Escitalopram Oxalate (Lexapro) 20 MG TABLET 1 TAB PO QPM DEPRESSION (Reported ) Multivitamin (Multi-Day Vitamins) 1 EACH TABLET 1 TAB PO DAILY SUPPLEMENT ( Reported) Oxycodone HCl/Acetaminophen (Percocet 5-325 MG Tablet) 5 MG-325 MG TABLET 2 TAB PO 4 TIMES/DAY PAIN (Reported) Tramadol HCl (Ultram) 50 MG TABLET 1 TAB PO PRN PAIN (Reported) Current Medications: Current Medications Sig/Emmett Start time Last Medication Dose Route Stop Time Status Admin Acetaminophen 1,000 MG Q6P PRN 06/09 544 AC IV Acetaminophen 0 .STK-MED ONE 06/08 2056 DC IV Acetaminophen 1,000 MG ONCE ONE 06/08 2044 DC 06/08 N/A 1 UNIT IV 06/08 2058 2110 Ampicillin Sodium/ 3,000 MG Q6 06/09 599 AC 06/09 Sulbactam Sodium IV 0633 Sodium Chloride 100 ML Ampicillin Sodium/ 0 .STK-MED ONE 06/08 2053 DC Sulbactam Sodium .ROUTE Ampicillin Sodium/ 3,000 MG ONCE ONE 06/08 2029 DC 06/08 Sulbactam Sodium IV 06/08 2058 2200 Sodium Chloride 100 ML Dextrose/Sodium 1,000 ML .Q8H 06/09 544 AC 06/09 Chloride IV 0530 Heparin Sodium 5,000 UNIT Q8 06/09 06 AC (Porcine) SC Hydromorphone HCl 1 MG Q2-3 HRS NEEDED.. 06/09 0815 AC 06/09 IV 0818 Hydromorphone HCl 1 MG ONCE ONE 06/08 223 DC 06/08 IV 06/08 223 2231 Hydromorphone HCl 0 .STK-MED ONE 06/08 223 DC .ROUTE Hydromorphone HCl 1 MG ONCE ONE 06/08 191 DC 06/08 IV 06/08 191 1905 Hydromorphone HCl 0 .STK-MED ONE 06/08 190 DC .ROUTE Magnesium Sulfate 1 GM ONCE ONE 06/09 0815 AC Dextrose/Water 100 ML IV 06/09 1214 Metronidazole 500 MG ONCE ONE 06/08 2029 CAN N/A 1 UNIT IV 06/08 2128 Morphine Sulfate 0 .STK-MED ONE 06/08 181 DC .ROUTE Morphine Sulfate 2 MG ONCE ONE 06/08 1730 DC 06/08 IV 06/08 1731 1812 Ondansetron HCl 4 MG Q6P PRN 06/09 544 AC IV Ondansetron HCl 0 .STK-MED ONE 06/08 1749 DC .ROUTE Ondansetron HCl 4 MG ONCE ONE 06/08 1730 DC 06/08 IV 06/08 1731 1812 Sodium Chloride 500 ML BOLUS ONE 06/09 0545 DC 06/09 IV 06/09 0644 0540 Sodium Chloride 1,000 ML BOLUS ONE 06/08 2145 DC IV 06/08 2244 Sodium Chloride 1,000 ML BOLUS ONE 06/08 2045 DC IV 06/08 2144 Sodium Chloride 1,000 ML BOLUS ONE 06/08 2030 DC 06/08 IV 06/08 212 2200 Sodium Chloride 1,000 ML BOLUS ONE 06/08 2029 DC / IV 06/08 2128 2110 Sodium Chloride 1,000 ML BOLUS ONE 06/08 1730 DC 06/08 IV 06/08 1829 1744 Review of Systems Review of Systems Constitutional: Reports: see HPI. EENTM: Reports: no symptoms. Cardiovascular: Reports: no symptoms. Respiratory: Reports: no symptoms. GI: Reports: abdominal pain. Denies: constipation, diarrhea, distention, nausea. Genitourinary: Reports: no symptoms. Musculoskeletal: Reports: no symptoms. Neurological/Psychological: Reports: no symptoms. Hematologic/Endocrine: Reports: no symptoms. Past History Travel History Traveled to [place] past 21 day No Medical History Blood Transfusion Hx: No Neurological: NONE EENT: NONE Cardiovascular: IVC FILTER Respiratory: NONE Gastrointestinal: LAP GASTRIC LAP BAND 2013 MESH VENTRAL HERNIA REPAIR 05/10 Hepatic: NONE Renal: NONE Musculoskeletal: NONE Psychiatric: ANXIETY/DEPRESSION Endocrine: NONE Blood Disorders: NONE Cancer(s): NONE MECHANICAL INSULATOR/Reproductive: X2 Surgical History Surgical History: cholecystectomy, hernia repair-ventral, Lap Band, Gastric By pass in 2005 Family History Relations & Conditions If Any: MOTHER Relation not specified for: FHx: lung cancer Psychosocial History Where Do You Live? Home Services at Home: None Smoking Status: Never Smoked ETOH Use: denies use Functional Ability ADLs Independent: dressing, eating, toileting, bathing. Ambulation: independent IADLs Independent: shopping, housework, finances, food prep, telephone, transportation , medication admin. Exam & Diagnostic Data Last 24 Hrs of Vital Signs/I&O Vital Signs Date Time Temp Pulse Resp B/P Pulse O2 O2 Flow FiO2 Ox Delivery Rate 06/09 0800 96 Ventilator 40% 06/09 0730 96 Ventilator 40% 06/09 0522 40 06/08 2204 140 16 140/68 98 Room Air 06/080 101.8 06/08 2036 101.8 125 20 154/93 93 Room Air 06/08 1637 95.9 139 28 104/77 100 Room Air Intake & Output 06/09 1600 06/09 0800 06/09 0000 Intake Total 1000 Output Total Balance 1000 Intake, IV 1000 Patient 328 lb 290 lb Weight Physical Exam General Appearance: alert, awake, comfortable, intubated, obese Head: atraumatic, normal appearance Eyes: Bilateral: normal appearance, PERRL, EOMI. Neck: normal inspection, supple Respiratory: normal breath sounds, chest non-tender, no respiratory distress, lungs clear Cardiovascular: regular rate/rhythm, normal peripheral pulses Peripheral Pulses: 4+ carotid (R), 4+ carotid (L), 4+ radial (R), 4+ radial (L), 4+ tibialis posterior (R), 4+ tibialis posterior (L), 4+ dorsalis pedis (R), 4+ dorsalis pedis (L) Gastrointestinal: normal bowel sounds, soft, tenderness on palpation, diffusely, multiple dressings in place on incisions, colostomy on the left side, bag intact , no signs of infection, stoma clean, drain in place Extremities: normal inspection, normal capillary refill, normal range of motion, no edema Last 48 Hrs of Labs/Scottie: Laboratory Tests 06/09/16 0605: Anion Gap 7, Estimated GFR > 60, Glucose 121 H, Calcium 7.1 L, Phosphorus 3.3, Magnesium 1.2 L, Total Bilirubin 1.5 H, AST 32, ALT 32, Albumin 2.0 L, CBC w Diff MAN DIFF ORDERED, RBC 4.52, MCV 86.4, MCH 28.4, RDW 14.2, MPV 8.3, Gran % 88.9 H, Lymphocytes % 6.3 L, Monocytes % 4.7, Eosinophils % 0.1, Basophils % 0 L, Absolute Granulocytes 6.5, Segmented Neutrophils 59, Band Neutrophils 25 H, Absolute Lymphocytes 0.5 L, Lymphocytes 9 L, Monocytes 6, Absolute Monocytes 0.3, Absolute Eosinophils 0, Absolute Basophils 0, Metamyelocytes 1, Platelet Estimate ADEQUATE, Polychromasia 1+, Hypochromic-Microcytic 1+, Ovalocytes FEW, PUBS MCHC 32.8 L, Fld Total RBCs Counted 100 06/09/16 0600: pH 7.33 L, pCO2 41, pO2 106 H, HCO3 21, ABG O2 Sat (Measured) 96.0, P-50 (Temp Corrected) Y, Carboxyhemoglobin 1.3 L, O2 Concentration % 40%, Temperature 97.6 , Respiration Rate 16, O2 Delivery Method ESPRIT, Vent Mode AC, Expiratory Pressure 5, Tidal Volume 500, Phlebotomy Draw Site COVE 06/08/16 2147: Lactic Acid 2.4 H 06/08/16 1845: Urine Color YEL, Urine Clarity HAZY H, Urine pH 6.0, Ur Specific [place] 1.025, Urine Protein NEG, Urine Ketones NEG, Urine Nitrite POS H, Urine Bilirubin NEG, Urine Urobilinogen 0.2, Ur Leukocyte Esterase NEG, Ur Microscopic SEDIMENT EXAMINED, Ur Epithelial Cells MANY H, Urine Hemoglobin NEG, Urine Glucose NEG 06/08/16 1805: Anion Gap 10, Estimated GFR > 60, BUN/Creatinine Ratio 26.7 H, Glucose 129 H, Lactic Acid 1.7, Calcium 8.8, Total Bilirubin 0.9, AST 37 H, ALT 31, Alkaline Phosphatase 103, Total Protein 7.1, Albumin 3.7, Globulin 3.4, Albumin/Globulin Ratio 1.1, PT 11.8, INR 1.13, APTT 30, CBC w Diff NO MAN DIFF REQ, RBC 4.98, MCV 86.2, MCH 27.9, RDW 14.1, MPV 8.7, Gran % 88.9 H, Lymphocytes % 5.8 L, Monocytes % 5.2, Eosinophils % 0.1, Basophils % 0 L, Absolute Granulocytes 6.6 H, Absolute Lymphocytes 0.4 L, Absolute Monocytes 0.4, Absolute Eosinophils 0, Absolute Basophils 0, PUBS MCHC 32.4 L Diagnostic Data CXR Results 06/08/16 @ 2219: Portable AP portable view of the chest was obtained. 9:34 PM FINDINGS: No significant abnormality is noted involving the heart, lungs, mediastinum, bony thorax or soft tissues. IMPRESSION: No acute change of chest. 06/09/16 @ 0701 Endotracheal tube tip lies 3.5 cm above the sinan. The lungs are mildly hypoinflated with suspected bibasilar atelectasis. No additional dense consolidation is seen. No evidence of pneumothorax. Trace pleural effusions are difficult to exclude. Cardiac size is somewhat prominent for technique. No acute osseous findings are seen. IMPRESSION: Endotracheal tube tip 3.5 cm above the sinan. Bibasilar atelectasis. Other Results Abd/Pevic CT Scan: 1. Free air. There are focal inflammatory changes of the mesentery in the left lower quadrant surrounding a collection that is suspicious for perforated diverticulitis with localized abscess. 2. Small amount of free fluid. 3. Large collection of fluid in a ventral wall hernia cephalad to the umbilicus at the midline. 4. Status post gastric band in good position. 5. Status post cholecystectomy. Assessment/Plan Impression/Plan: 55-year-old woman with a past medical history of laparoscopic Eva-en-Y bypass in 2005, band in 07/04, chronic venous insufficiency, and lower exterimity vein closure in December 2012, non-smoker, microscopic mesh repair of a large ventral incisional hernia, on 04/29/16, has a remote history of diverticulitis over 10 years ago, presented to the ED overnight, aroud 1 am, with abdominal pains, crampy, diffuse, with radiation to the left side, consistent, in fact getting worse, aggravated with movement, not assocaited with nausea or vomiting, free air on CT Abd/Pelvis, S/P explaratory laprotomy for SBo over night, now in the ICU, intubated, for monitoring and further management for peritonitis. Recommendations: 1. Small Bowel Obstruction S/P Explaratory Laprotomy 2. Large bowel perforatuion leading to fecal Peritonitis 3. Fever/Sepsis secondary to peritonitis 4. Respiratory failure and Sepsis requiring pressors during surgery S/P Intubation 5. History of Mood disorder 6. Obesity Class III - Continue to monitor in the ICU - Currently is on 40% FiO2, TV 500, PEEP 5 - Patient is alert, awake, no respiratory distress able to communicate, should be given a trial for extubation which she will possibiliy tolerate really well and then shoudl be extubated - Repeat ABG - Patient spiked a fever of 101.8 overnight. Continue with Unasyn 3 g Q6H for peritonitis - IV Tylenol for fever, PRN - Keep NPO for now - Contiue with IV fluids - Frequent Abdominal checks for acute abdomin - Repeat Abd X-ray for SBO - Continue Zofran for nausea/vomiting - Continue with hydromorphone for pain control - Rest of the SBO management as per surgery team - Once extubated and able to eat, ay resume her outpatient psych meds - Keep ALPS at all times - SC Heparin for DVT prophylaxis - IV PPI Daily - Early ambulation/OOB to chair - NPO for now, advance as tolerated post extubation - FULL CODE Problem List: 1. HISTORY OF OPEN GASTRIC BYPASS 2. History of - depression 3. LAP BAND OVER GASTRIC BYPASS 4. Morbid obesity 5. Peritonitis 6. S/P colostomy 7. S/P exploratory laparotomy Consult Acknowledgment - Thank you for your consult request. ADRIEN MCCARTY,[facility] 06/09/16 1250: Assessment/Plan Other Findings/Comments: Seen and examined independently This is a 55-year-old lady who had a Pizarro's procedure last night. She has had previous history of gastric bypass LAP-BAND with recent mesh repair of large ventral incisional hernia. She had come into the hospital with unusual abdominal pain and investigations revealed that she had a perforated bowel with peritonitis and she was operated on last night. Subsequently due to the fact that she was hypotensive during the procedure she was started on vasopressors and she was kept intubated overnight. Critical care consult was asked to evaluate and manage this lady. History as noted above When I saw her she was intubated could not give appropriate history vital signs were stable a line was in place pupils reacting extraocular movements intact neck was supple Chest decreased breath sounds Heart S1-S2 is heard heart rate 100 Abdominal exam obese distended status post surgery with dressings but it was nontender no significant cyanosis clubbing or edema. Significant data as noted above this morning's chest x-ray showed bibasilar atelectasis CT scan of the abdomen and pelvis done upon admission showed free air with the status post gastric band previous cholecystectomy large collection of fluid in the ventral wall hernia IMPRESSION This is a 55-year-old lady with history of LAP-BAND surgery, previous Eva-en-Y bypass, chronic venous insufficiency, lower extremity edema, recent laparoscopic mesh repair of the large ventral hernia in April 2016, remote history of diverticulitis now here with perforated sigmoid now status post surgery with Pizarro's procedure and irrigation of the peritoneum. Her issues include * Respiratory failure due to anesthesia effect and sepsis requiring vasopressors doing the surgery. This seems to be improving and asked patient is coming off her medications she can easily be liberated from the mechanical ventilator * Perforated large bowel with fecal peritonitis status post surgery with fever high risk for intra-abdominal abscesses in the future * History of depression stable * Morbid obesity stable * Ongoing fever due to above-mentioned issue RECOMMENDATIONS * Extubate * Keep nothing by mouth * Continue antibiotics * May benefit from a repeat CT scan in the next 48 hours if she continues to spike * Discontinue A-line * OG/NG tube and other management per surgery * Continue intravenous fluids * We will resume her antidepressants when she is able to take by mouth * Heparin subcutaneous * Adequate pain control Patient is critically ill patient total time spent 45 minutes Consult Acknowledgment - Thank you for your consult request. Patient is critically ill patient total time spent 45 minutes Consult Acknowledgment - Thank you for your consult request.
--- NOTE | 2016-06-09 09:10 | NUR ---
0510 TO 0700 PATIENT FROM OR TO CRCU 106 FOR PACU CARE- SEE PACU FLOW SHEET 0789 PATIENT AWAKE, ABLE TO WRITE TO EXPRESS QUESTIONS/NEEDS,DENIES NEED FOR PAIN MEDICATION FOR POST-OP PAIN AT THIS TIME, ETT TO VENTILATOR AT 40% FIO2-CONTINUOUS O2 SAT 94 TO 97%, BREATHE SOUNDS CLEAR BILATERALLY, LABORER SAWMILL SINUS TACHYCARDIA WITHOUT ECTOPY, HEART RATE 110'S/MIN, SBP 95 TO LOW 100'S/, ABDOMINAL DRESSINGS INTACT- MIDLINE DRESSING DRAINAGE MARKED, JOHAN X2 IN PLACE AND COMPRESSED, COLOSTOMY STOMA ED AND INTACT-SCANT WATERY RED DRAINAGE, BLOCK TO GRAVITY WITH CYNTHIA CLEAR UO, FAMILY AT BEDSIDE, AWAITING AM MD ROUNDS
--- NOTE | 2016-06-09 14:26 | Operative Report ---
Operative/Inv Procedure Report Surgery Date: 06/08/16 Name of Procedure: Pizarro's procedure Pre-Operative Diagnosis: Peritonitis, perforated descending colon Post-Operative Diagnosis: Same Estimated Blood Loss: less than 50ml Surgeon/Steel Fabricating Supervisor: AUBREY MCCARTY,DONNIE CALDERA Anesthesia: general endotracheal tube Operative/Procedure Note Note: Patient was positioned supine, after induction of general anesthesia, a tap block was performed, IV antibiotics were given and then the abdomen was clipped prepped and draped from the nipples to the groin in the usual sterile fashion. A midline incision was made with a 10 blade starting just above the umbilicus extending vertically in the midline approximately 15 cm. The incision was deepened with cautery through Stephen's fascia, there were 3 subcutaneous masses , in the area just above the incision was a postoperative seroma from recent mesh placement, in the middle of the incision along the umbilical stalk was a 5 cm hardened fatty mass that we excised and submitted for pathology , and also separately was another fatty mass which turned turned out to be incarcerated omentum coming through a fascial defect. Clearing off the linea alba first then carefully incising it, avoiding injury to the underlying bowel, which was quite adherent to the recently placed mesh.\ The abdomen was explored there was obvious stool and free fluid mostly in the left lower quadrant and pelvis, there was some fibrin peel on sufaces. The perforation was a full-thickness circumferential tear in the distal descending colon. The small and large bowel in this area were quite edematous and there were adhesions and thick scarring probably from remote episodes of diverticulitis in the deep pelvis, in particular the mid sigmoid colon was adherent to the peritoneum over the bladder and at this point there was an obvious stricture in the sigmoid colon .The descending colon was mobilized along the white line of Toldt and the mesocolon was divided at the perforation with the LigaSure. This proximal end was later brought up through a hole we made through the abdominal wall in the left lateral abdomen, well above the iliac crest, and then matured in Kyleigh fashion with multiple interrupted 3-0 Vicryl stay after closure of the midline. The remainder of the sigmoid colon was so stuck at that strictured area that first I had to divide the distal end of the sigmoid colon (still above the peritoneal reflection), with a TA 60 stapler and now with both ends of the sigmoid colon disconnected, using them as a handle, it became possible to disconnect the remainder of the sigmoid colon. We had been irrigating / aspirating throughout the case to remove the stool, including rounds of irrigation containing bacitracin, this was continued after the specimen was removed. We placed 2 Denzel-Eddy drains through separate stab incisions one in each lower quadrant. The incision was closed in layers using 2 continuous runs of single 0 Maxon suture for the fascia then the subcutaneous layer pulse lavaged and wicked with iodoform and then renée loosely spaced for skin followed by gauze and tape. During the closure seroma was opened irrigated and wicked as well. An ostomy appliance was placed. EBL minimal lap and sponge counts correct wound expectancy was dirty, IV fluids crystalloid complications none, patient tolerated the procedure well and was returned to the recovery room /ICU in satisfactory condition, still intubated.
--- NOTE | 2016-06-09 15:03 | NUR ---
1245: Patient extubated and placed on 3L nasal cannula by Maria Elena. Tolerated a 2 hour trial before well. In no respiratory distress after extubation. Lungs clear before diminished to the bases and diminished throughout at this time.
--- NOTE | 2016-06-09 15:12 | RADIOLOGY REPORT ---
EXAMINATION: XR PORTABLE CHEST CLINICAL INFORMATION: Status post Sera's. Intubated patient. Postoperative evaluation. Presumptive diagnosis of atelectasis. COMPARISON: Chest x-ray dated 06/09/2016 and 06/08/2016. TECHNIQUE: AP semierect portable view of the chest was obtained. FINDINGS: The cardiomediastinal silhouette is enlarged, unchanged. Previously seen endotracheal tube has been removed. Low lung volumes are seen with slight elevation of the right hemidiaphragm and bibasilar opacities, most consistent with subsegmental atelectasis, similar to the prior exam. No significant pleural effusion or pneumothorax is seen. No dense consolidation noted. Bony structures are unremarkable. IMPRESSION: Low lung volumes with bibasilar subsegmental atelectasis.
--- NOTE | 2016-06-09 15:13 | PN- General Surgery ---
Subjective Subjective: 55-year-old female postop day 0 status post Pizarro's procedure. She feels well, she has mild pain control with pain medication. She denies any fever chest pain cough. Pain is central abdominal region. She is extubated, awake and alert. She has no nausea or vomiting Objective Vital Signs and I&Os Vital Signs Date Time Temp Pulse Resp B/P Pulse O2 O2 Flow FiO2 Ox Delivery Rate 06/09 1200 96 Ventilator 40% 06/09 0931 40 06/09 0800 96 Ventilator 40% 06/09 08 96.0 116 24 110/60 96 Ventilator 40% 06/09 0730 96 Ventilator 40% 06/09 0522 40 06/08 2204 140 16 140/68 98 Room Air 06/08 2110 101.8 06/08 2037 101.8 125 20 154/93 93 Room Air 06/08 1637 95.9 139 28 104/77 100 Room Air Intake & Output 06/09 1600 06/09 0800 06/09 0000 06/08 1600 06/08 0800 06/08 0000 Intake Total 1000 Output Total Balance 1000 Intake, IV 1000 Patient 328 lb 290 lb Weight Most recent vital signs: Heart rate 102 sinus, respiratory 18, blood pressure 104/60, 3 L via nasal nasal cannula at 95% oxygen saturation Total intake 1348 Urine output 375 Left JOHAN drain 60 Right JOHAN drain 80 Laboratory Tests 06/09 06/09 1135 1027 Blood Gas pH (7.35 - 7.45 PH) 7.34 L 7.28 *L pCO2 (35 - 45 TORR) 40 49 H pO2 (80 - 100 TORR) 122 H 111 H HCO3 (21 - 28 MEQ/L) 21 23 ABG O2 Sat (Measured) (>96.0 %) 98.0 98.0 P-50 (Temp Corrected) YES NO Carboxyhemoglobin (1.5 - 5.0 %) 1.3 L 1.4 L O2 Concentration % 40 40 Temperature (97.0 - 100.0 FARH) 97.6 97.6 O2 Delivery Method VENT VENT Vent Mode CPAP CPAP Expiratory Pressure (CMH2O/P) 5 5 Pressure Support (CMH2O/P) 6 6 Miscellaneous Phlebotomy Draw Site RIGHT RADIAL LATOYA 06/09 06/09 06/08 0605 0600 2147 Blood Gas pH (7.35 - 7.45 PH) 7.33 L pCO2 (35 - 45 TORR) 41 pO2 (80 - 100 TORR) 106 H HCO3 (21 - 28 MEQ/L) 21 ABG O2 Sat (Measured) (>96.0 %) 96.0 P-50 (Temp Corrected) Y Carboxyhemoglobin (1.5 - 5.0 %) 1.3 L O2 Concentration % 40% Temperature (97.0 - 100.0 FARH) 97.6 Respiration Rate (BPM) 16 O2 Delivery Method ESPRIT Vent Mode AC Expiratory Pressure (CMH2O/P) 5 Tidal Volume (CC) 500 Chemistry Sodium (137 - 145 mmol/L) 137 Potassium (3.5 - 5.1 mmol/L) 3.8 Chloride (98 - 107 mmol/L) 108 H Carbon Dioxide (22 - 30 mmol/L) 22 Anion Gap (5 - 16) 7 BUN (7 - 17 mg/dL) 11 Creatinine (0.5 - 1.0 mg/dL) 0.6 Estimated GFR (>60 ml/min) > 60 Glucose (65 - 99 mg/dL) 121 H Lactic Acid (0.7 - 2.1 mmol/L) 2.4 H Calcium (8.4 - 10.2 mg/dL) 7.1 L Phosphorus (2.5 - 4.5 mg/dL) 3.3 Magnesium (1.6 - 2.3 mg/dL) 1.2 L Total Bilirubin (0.2 - 1.3 mg/dL) 1.5 H AST (14 - 36 U/L) 32 ALT (9 - 52 U/L) 32 Albumin (3.5 - 5.0 g/dL) 2.0 L Hematology CBC w Diff MAN DIFF ORDERED WBC (4.8 - 10.8 /CUMM) 7.3 RBC (4.20 - 5.40 /CUMM) 4.52 Hgb (12.0 - 16.0 G/DL) 12.8 Hct (37 - 47 %) 39.1 MCV (81.0 - 99.0 FL) 86.4 MCH (27.0 - 31.0 PG) 28.4 RDW (11.5 - 14.5 %) 14.2 Plt Count (130 - 400 /CUMM) 221 MPV (7.4 - 10.4 FL) 8.3 Gran % (42.2 - 75.2 %) 88.9 H Lymphocytes % (20.5 - 51.1 %) 6.3 L Monocytes % (1.7 - 9.3 %) 4.7 Eosinophils % (0 - 5 %) 0.1 Basophils % (0.0 - 2.0 %) 0 L Absolute Granulocytes (1.4 - 6.5 /CUMM) 6.5 Segmented Neutrophils (42.2 - 75.2 %) 59 Band Neutrophils (0.0 - 5.0 %) 25 H Absolute Lymphocytes (1.2 - 3.4 /CUMM) 0.5 L Lymphocytes (20.5 - 51.1 %) 9 L Monocytes (1.7 - 9.3 %) 6 Absolute Monocytes (0.10 - 0.60 /CUMM) 0.3 Absolute Eosinophils (0.0 - 0.7 /CUMM) 0 Absolute Basophils (0.0 - 0.2 /CUMM) 0 Metamyelocytes (0.0 - 1.0 %) 1 Platelet Estimate (ADEQUATE) ADEQUATE Polychromasia 1+ Hypochromic-Microcytic 1+ Ovalocytes FEW PUBS MCHC (33.0 - 37.0 G/DL) 32.8 L Miscellaneous Phlebotomy Draw Site [place] Other Body Source [place] Total RBCs Counted (%) 100 06/08 06/08 1845 1805 Chemistry Sodium (137 - 145 mmol/L) 140 Potassium (3.5 - 5.1 mmol/L) 4.4 Chloride (98 - 107 mmol/L) 101 Carbon Dioxide (22 - 30 mmol/L) 29 Anion Gap (5 - 16) 10 BUN (7 - 17 mg/dL) 16 Creatinine (0.5 - 1.0 mg/dL) 0.6 Estimated GFR (>60 ml/min) > 60 BUN/Creatinine Ratio (7 - 25 %) 26.7 H Glucose (65 - 99 mg/dL) 129 H Lactic Acid (0.7 - 2.1 mmol/L) 1.7 Calcium (8.4 - 10.2 mg/dL) 8.8 Total Bilirubin (0.2 - 1.3 mg/dL) 0.9 AST (14 - 36 U/L) 37 H ALT (9 - 52 U/L) 31 Alkaline Phosphatase (<127 U/L) 103 Total Protein (6.3 - 8.2 g/dL) 7.1 Albumin (3.5 - 5.0 g/dL) 3.7 Globulin (1.9 - 4.2 gm/dL) 3.4 Albumin/Globulin Ratio (1.1 - 2.2 %) 1.1 Coagulation PT (9.4 - 12.5 SEC) 11.8 INR (0.90 - 1.19) 1.13 APTT (25 - 37 SEC) 30 Hematology CBC w Diff NO MAN DIFF REQ WBC (4.8 - 10.8 /CUMM) 7.4 RBC (4.20 - 5.40 /CUMM) 4.98 Hgb (12.0 - 16.0 G/DL) 13.9 Hct (37 - 47 %) 42.9 MCV (81.0 - 99.0 FL) 86.2 MCH (27.0 - 31.0 PG) 27.9 RDW (11.5 - 14.5 %) 14.1 Plt Count (130 - 400 /CUMM) 217 MPV (7.4 - 10.4 FL) 8.7 Gran % (42.2 - 75.2 %) 88.9 H Lymphocytes % (20.5 - 51.1 %) 5.8 L Monocytes % (1.7 - 9.3 %) 5.2 Eosinophils % (0 - 5 %) 0.1 Basophils % (0.0 - 2.0 %) 0 L Absolute Granulocytes (1.4 - 6.5 /CUMM) 6.6 H Absolute Lymphocytes (1.2 - 3.4 /CUMM) 0.4 L Absolute Monocytes (0.10 - 0.60 /CUMM) 0.4 Absolute Eosinophils (0.0 - 0.7 /CUMM) 0 Absolute Basophils (0.0 - 0.2 /CUMM) 0 PUBS MCHC (33.0 - 37.0 G/DL) 32.4 L Urines Urine Color (YEL,AMB,STR) YEL Urine Clarity (CLEAR) HAZY H Urine pH (5.0 - 8.0) 6.0 Ur Specific [place] (1.001 - 1.035) 1.025 Urine Protein (NEG,<30 MG/DL) NEG Urine Ketones (NEG) NEG Urine Nitrite (NEG) POS H Urine Bilirubin (NEG) NEG Urine Urobilinogen (0.1 - 1.0 EU/dl) 0.2 Ur Leukocyte Esterase (NEG) NEG Ur Microscopic SEDIMENT EXAMINED Ur Epithelial Cells (NONE,FEW) MANY H Urine Hemoglobin (NEG) NEG Urine Glucose (N MG/DL) NEG Physical Exam: Well-developed well-nourished no apparent distress. HEENT: Atraumatic, extraocular motion intact Neck: Supple, no lymphadenopathy Respiratory: No respiratory distress, clear to auscultation bilateral. Heart: Regular rate and rhythm no murmur Abdomen: [address], 1 right-sided 1 left side, minimal thin serous bloody drainage noted draining to bulb suction. large midline surgical incision with mild amount of staining. Obese. Bowel sounds hypoactive Mild diffuse tenderness as expected Colostomy site with thin bloody serous fluid in the bag with small amount of air noted. stoma is pink and viable. Extremities: No edema, no calf tenderness. Neuro: Alert and oriented x3 Psych: Mood affect normal, normal memory normal judgment. Skin: Warm and dry, no rash on exposed skin Assessment/Plan Assessment/Plan 55-year-old female postop day 0 status post Pizarro's procedure for perforated diverticulitis -Continue monitoring ICU. -Continue IV antibiotics -Continue strict I's and O's, drains to remain in place, continue Mary catheter -Nothing by mouth, IV hydration -Appreciate medical following, replenish magnesium -When necessary antiemetics, anti-pyretics and pain medication -Total respiratory care -GI and DVT prophylaxis, Protonix ordered. On heparin -Out of bed tomorrow morning -Follow-up repeat labs tomorrow -Colostomy care per nursing -Dressing change postop day 2 or when necessary Core Measures/Miscellaneous Venous Thromboembolism VTE Risk Factors: Age > 40, Obesity, Surgery VTE Contraindications: No Contraindications VTE Prophylaxis Ordered Inpt Mech & Pharm VTE Diagnosis: No VTE Type: NONE VTE Confirmed by (Test): NONE Beta Ethan Is Beta Ethan a Home Med? No Antibiotics Is Patient on Antibiotics? Yes If Yes: infection
[2016-06-09 16:00] VITALS: BP 98/62
--- NOTE | 2016-06-09 18:46 | NUR ---
RECEIVED PATIENT AT 0800 ALERT AND ORIENTED BY ORALLY INTUBATED W/ #7.5 TO THE RIGHT AT 22CM AND MECHANICALLY VENTILATED WITH AC-16, TV-500, AND FIO2 OF 40%. LUNGS WERE CLEAR/DIM TO THE BASES UPON AUSCULTATION, O2 SATS 96%. PATIENT TOLERATED TRIALING WELL AND WAS EXTUBATED AT 1245. PLACED ON 3L NASAL CANNULA WHERE SHE STAYED ALL DAY WITHOUT DISTRESS. TO TITRATE O2 TOMORROW. 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 SBP 80S-110S. IMPROVED BY THE EVENING MAINTAINING SBP 110S. D5-1/2 NS RUNNING AT 125 MLS/HR THROUGH A #20 TO THE LF PLACED 06/08. LATOYA IS IN PLACE TO L RADIAL. OCCASIONALLY DAMPENS OUT AND HAS INACCURATE READINGS. AUTOCUFF MATCHING TO MANUAL PRESSURES. PATIENT DENIES CHEST PAIN. +PEDAL/RADIAL PULSES BILATERALLY. ABDOMEN SOFT/TENDER UPON PALPATION MORE TO THE OUTER SIDES THAN THE MIDLINE. MIDLINE INCISION NOTED W/ DRESSING W/ DRIED DRAINAGE, REMAINED CONSISTENT THROUGHOUT THE DAY. DRESSINGS TO BILATERAL SIDES OF ABDOMEN W/ A JOHAN DRAIN TO EACH SIDE. RIGHT SIDE DRAIN OF #2 PUTTING OUT MORE SEROSANGINOUS DRAINAGE THAN JOHAN #1. OUTPUT'S REPORTED TO SURGICAL PA, DEWAYNE AND LEANN. COLOSTOMY TO LEFT SIDE OF ABDOMEN W/ SCANT WATERY, BLOOD STREAKED DRAINAGE. STOMA IS RED/PINK/INTACT WITHOUT SWELLING. BLOCK IN PLACE DRAINING MODERATE AMOUNTS OF CLEAR/CYNTHIA URINE. PATIENT'S SKIN IS OTHERWISE INTACT, WARM, PINK, PATIENT IS OBESE. NO EDEMA NOTED. PATIENT GIVEN MOUTH SWABS AND TO RESTART HOME PO MEDS FOR NIGHT TIME W/ A SIP OF WATER. DILAUDID 1MG IV GIVEN FOR ABDOMINAL ACHING PAIN 8-9/10 AND IMPROVES TO 4/5. PATIENT EDUCATED ON THE POSSIBILITY OF SEPSIS/INFECTION, THE ACTION OF OPIATES ON GASTRIC MOTILITY, THE IMPORTANCE OF COUGHING/DEEP BREATHING, AND SAFETY WHILE IN THE HOSPITAL. PATIENT IS COMPLIANT AND VERBALIZES UNDERSTANDING.
--- NOTE | 2016-06-09 22:19 | NUR ---
MD KIRKLAND MADE AWARE URINE OUTPUT FOR 8HRS 170ML. NO NEW ORDERS AT THIS TIME. NS @125ML/HR X1 BAG INFUSING, WILL BE DONE IN2-3 HRS, STATEST TO MONITOR URINE OUTPUT. WILL CONT TO MONITOR
[2016-06-10] VITALS: BP 106/58
[2016-06-10 05:27] LABS: ABSOLUTE BASOPHIL COUNT 0 /CUMM (0.0-0.2); ABSOLUTE EOSINOPHIL COUNT 0 /CUMM (0.0-0.7); ABSOLUTE GRANULOCYTE CT 7.8 /CUMM (1.4-6.5); ABSOLUTE LYMPH COUNT 0.5 /CUMM (1.2-3.4); ABSOLUTE MONOCYTE COUNT 0.4 /CUMM (0.10-0.60); BASOPHIL % 0.1 % (0.0-2.0); EOSINOPHIL % 0.1 % (0-5); GRANULOCYTE % 88.7 % (42.2-75.2); MEAN CORPUSCULAR HGB 28.8 PG (27.0-31.0); MEAN CORPUSCULAR VOLUME 87.1 FL (81.0-99.0); MEAN PLATELET VOLUME 8.2 FL (7.4-10.4); PLATELET COUNT 178 /CUMM (130-400); RBC DISTRIBUTION WIDTH 14.3 % (11.5-14.5); RED BLOOD CELL CT 3.89 /CUMM (4.20-5.40); WHITE BLOOD CELL COUNT 8.8 /CUMM (4.8-10.8)
--- NOTE | 2016-06-10 05:30 | PN- General Surgery ---
See Addendum Subjective Subjective: The patient was seen this morning postoperatively day #1. She reports feeling some mild generalized soreness in her abdomen which is adequately controlled with the current pain meds. She denies any nausea and has no other complaints at the current time. Per nursing there are no significant events overnight however she noted that the patient's urine output was marginal over the last few hours and is looking dark. Objective Vital Signs and I&Os Vital Signs Date Time Temp Pulse Resp B/P Pulse O2 O2 Flow FiO2 Ox Delivery Rate 06/10 0400 95 Nasal 2.0L Cannula 06/10 0000 95 Nasal 2.0L Cannula 06/09 2000 95 Nasal 2.0L Cannula 06/09 1600 96.6 104 22 98/62 97 Nasal 3.0L Cannula 06/09 1600 96 Nasal 3.0L Cannula 06/09 1200 96 Ventilator 40% 06/09 0931 40 06/09 0800 96 Ventilator 40% 06/09 0800 96.0 116 24 110/60 96 Ventilator 40% 06/09 0730 96 Ventilator 40% Intake & Output 06/10 0800 06/10 0000 06/09 1600 06/09 0800 06/09 0000 06/08 1600 Intake Total 1046 1348 1000 Output Total 380 635 Balance 572 047 3237 Intake, IV 1036 1348 1000 Intake, Oral 10 Number 0 Bowel Movements Output, 80 250 Drainage Output, Stool 10 Output, Urine 300 375 Patient 328 lb 290 lb Weight Physical Exam: Gen.: Alert and in no obvious distress Skin: Warm and dry without jaundice Cardiac: S1 and S2 regular with tachycardia Pulmonary: Bilateral breath sounds are equal and decreased at bases Abdomen: Softly distended, obese, mild generalized tenderness and appropriate. Incisional tenderness, bowel sounds scant. Surgical dressing is bloodstained but otherwise intact. There are [address] holding suction with serous drainage in the bulb. The colostomy is pink and viable with no output in the bag. Extremities: Bilateral lower extremities are warm without calf tenderness or significant edema. Assessment/Plan Assessment/Plan Assessment: 55-year-old female status post Pizarro's procedure for perforated diverticulitis postoperative day #1. The patient is progressing as expected and her pain is under adequate control. Plan: Increased baseline IV fluids to 150 ML's/hr, give 1 L of normal saline bolus Follow-up morning laboratory studies Continue IV antibiotics and nothing by mouth status PRN antiemetics, antipyretics, and pain medications GI and DVT prophylaxis Strict I's and O's Renew Mary catheter and keep JPs to self suction Daily ostomy care For surgical dressing change tomorrow Out of bed to chair Total respiratory care Follow-up pulmonary and critical care consultation recommendations Core Measures/Miscellaneous Venous Thromboembolism VTE Risk Factors: Age > 40, Obesity, Surgery VTE Contraindications: No Contraindications VTE Prophylaxis Ordered Inpt Mech & Pharm VTE Diagnosis: No VTE Type: NONE VTE Confirmed by (Test): NONE Beta Ethan Is Beta Ethan a Home Med? No Antibiotics Is Patient on Antibiotics? Yes If Yes: infection
[2016-06-10 05:41] LABS: HEMATOCRIT 33.9 % (37-47)
--- NOTE | 2016-06-10 07:10 | PN- Resident CRCU ---
Subjective HPI/CRCU Issues: Patient is in ICU because he was intubated postanesthesia, and underwent a major surgery following bowel rupture with fecal peritonitis. I followed up and examined the patient today. She is lying comfortably on the bed, not in any acute distress. She was already extubated.She does not have any complaints, no issues overnight, no fever, chest pain, palpitation, shortness of breath, leg pain, nausea, vomiting overnight. Vitals stable, no issues. Objective Vital Signs & I&O Last 8 Hrs of Vitals and I&O: Vital Signs Date Time Temp Pulse Resp B/P Pulse O2 O2 Flow FiO2 Ox Delivery Rate 06/10 0800 94 Nasal 1.0L Cannula 06/10 0800 96.8 114 19 98/48 97 Nasal 1.0L Cannula 06/10 0400 95 Nasal 2.0L Cannula 06/10 0000 98.5 110 12 106/58 94 Nasal 2.0L Cannula 06/10 0000 95 Nasal 2.0L Cannula 06/09 2000 95 Nasal 2.0L Cannula 06/09 1600 96.6 104 22 98/62 97 Nasal 3.0L Cannula 06/09 1600 96 Nasal 3.0L Cannula 06/09 1200 96 Ventilator 40% Exam General Appearance: morbidly obese Head: atraumatic, normal appearance Ears, Nose, Throat: normal pharynx, normal ENT inspection Neck: normal inspection, supple, full range of motion Respiratory: normal breath sounds, chest non-tender, no respiratory distress Cardiovascular: regular rate/rhythm Gastrointestinal: normal bowel sounds, soft, has dressing longitudinally over midline, no bulge, no soakage, no bleeding, has colostomy bag over left side, draining serosanguinous fluid, (per nursing staff, it is less red than yesterday ) Extremities: edema present, non pitting Skin: intact, normal color, warm/dry Weaning Parameters NIF: 33 Minute Volume: 10.9 Resp rate: 17 Vt: 569 Heart Rate: 113 Weaning Schedule Start Time: 0930 Minute Volume: 10.9 Resp Rate: 17 Vt: 569 Heart Rate: 113 Mary Site: urethral IV Drips IV Drips: IV bolus 1L was given in AM by surgical team Nutrition Nutrition: NPO Current Medications: Current Medications Sig/Emmett Start time Last Medication Dose Route Stop Time Status Admin Acetaminophen 1,000 MG Q6P PRN 06/09 0545 AC IV Amitriptyline HCl 25 MG AT BEDTIME 06/09 2200 AC 06/09 PO 2040 Ampicillin Sodium/ 3,000 MG Q6 06/09 0600 AC 06/10 Sulbactam Sodium IV 1129 Sodium Chloride 100 ML Bupropion HCl 300 MG QPM 06/09 2200 AC 06/09 PO 2040 Dextrose/Sodium 1,000 ML .Q6H40M 06/09 0545 DC 06/10 Chloride IV 0531 Escitalopram Oxalate 20 MG QPM 06/09 2200 AC 06/09 PO 2040 Heparin Sodium 5,000 UNIT Q8 06/09 0600 AC 06/10 (Porcine) SC 0532 Hydromorphone HCl 2 MG .STK-MED ONE 06/09 1521 DC IV 06/09 1522 Hydromorphone HCl 1 MG Q2-3 HRS NEEDED.. 06/09 0815 AC 06/10 IV 0640 Ibuprofen 800 MG .STK-MED ONE 06/09 1522 DC PO 06/09 1523 Magnesium Sulfate 1 GM Q2H 06/10 0900 AC 06/10 Dextrose/Water 100 ML IV 06/10 1259 1129 Magnesium Sulfate 1 GM ONCE ONE 06/09 0815 DC 06/09 Dextrose/Water 100 ML IV 06/09 1214 0928 Ondansetron HCl 4 MG Q6P PRN 06/09 0545 IV Pantoprazole Sodium 40 MG DAILY 06/09 1515 AC 06/10 IV 0952 Potassium Chloride 20 MEQ Q6H 06/10 0845 Dextrose/Sodium 1,000 ML IV Chloride Sodium Chloride 1,000 ML BOLUS ONE 06/10 0530 DC 06/10 IV 06/10 0629 0531 Antibiotics Antibiotic: Unasyn Day #: 2 IV/PO? IV Results Cultures: Culture: Urine Date: 06/10/16 Isolate: GNR CXR Findings: 06/09/16: IMPRESSION: Low lung volumes with bibasilar subsegmental atelectasis. DICTATED BY: MATTHEW GLASS MD DATE/TIME DICTATED:06/09/161500 TUBER MACHINE OPERATOR:LASHANDA DATE/TIME TRANSCRIBED:06/09/161500 Impression/Plan Impression/Problem List Impression: 55-year-old woman with a past medical history of laparoscopic Eva-en-Y bypass in 2005, band in 07/04, chronic venous insufficiency, and lower exterimity vein closure in December 2012, non-smoker, microscopic mesh repair of a large ventral incisional hernia, on 04/29/16, has a remote history of diverticulitis over 10 years ago, presented to the ED overnight, aroud 1 am, with abdominal pains, crampy, diffuse, with radiation to the left side, consistent, in fact getting worse, aggravated with movement, not assocaited with nausea or vomiting, free air on CT Abd/Pelvis, S/P explaratory laprotomy for SBo over night, now in the ICU, intubated, for monitoring and further management for peritonitis. Recommendations: 1. Small Bowel Obstruction S/P Explaratory Laprotomy 2. Large bowel perforatuion leading to fecal Peritonitis 3. Fever/Sepsis secondary to peritonitis 4. Respiratory failure and Sepsis requiring pressors during surgery S/P Intubation 5. History of Mood disorder 6. Obesity Class III 7. Malnutrition - Continue to monitor in the ICU - Currently is on 40% FiO2, TV 500, PEEP 5 - Patient is alert, awake, no respiratory distress able to communicate, should be given a trial for extubation which she will possibiliy tolerate really well and then shoudl be extubated - Repeat ABG - Patient spiked a fever of 101.8 overnight. Continue with Unasyn 3 g Q6H for peritonitis - IV Tylenol for fever, PRN - Keep NPO for now - Contiue with IV fluids - Frequent Abdominal checks for acute abdomen - Repeat Abd X-ray for SBO - Continue Zofran for nausea/vomiting - Continue with hydromorphone for pain control - Rest of the SBO management as per surgery team - Once able to eat, may resume her outpatient psych meds - Keep ALPS at all times - SC Heparin for DVT prophylaxis - IV PPI Daily - Early ambulation/OOB to chair - NPO for now, advance as tolerated post extubation - Consider nutrition consult when PO starts - Signing off medical service. Surgical service informed. - FULL CODE Problem List: 1. Perforated sigmoid colon 2. Peritonitis 3. H/O resection of large bowel 4. S/P colostomy 5. S/P exploratory laparotomy 6. Diverticulitis of colon with perforation Pain Ratin Pain Location: abdomen Pain Goal: Remain pain free Pain Plan: prn Tomorrow's Labs & Rationales: ICU bundle, CBC, to follow up for sepsis, and dyselectrolytemia as the patient is NPO Plan DVT/Prophylaxis: mechanical, pharmacological
[2016-06-10 08:00] VITALS: BP 98/48
--- NOTE | 2016-06-10 11:06 | PN- Pulmonary ---
Subjective HPI/Critical Care Issues: The patient was seen this morning postoperatively day #1. She reports feeling some mild generalized soreness in her abdomen which is adequately controlled with the current pain meds. She denies any nausea and has no other complaints at the current time. Per nursing there are no significant events overnight however she noted that the patient's urine output was marginal over the last few hours and is looking dark. Objective Current Medications: Current Medications Sig/Emmett Start time Last Medication Dose Route Stop Time Status Admin Acetaminophen 1,000 MG Q6P PRN 06/09 0545 AC IV Amitriptyline HCl 25 MG AT BEDTIME 06/09 2200 AC 06/09 PO 2040 Ampicillin Sodium/ 3,000 MG Q6 06/09 0600 AC 06/10 Sulbactam Sodium IV 0528 Sodium Chloride 100 ML Bupropion HCl 300 MG QPM 06/09 2200 AC 06/09 PO 2040 Dextrose/Sodium 1,000 ML .Q6H40M 06/09 0545 DC 06/10 Chloride IV 0531 Escitalopram Oxalate 20 MG QPM 06/09 2200 AC 06/09 PO 2040 Heparin Sodium 5,000 UNIT Q8 06/09 06 AC 06/10 (Porcine) SC 0532 Hydromorphone HCl 2 MG .STK-MED ONE 06/09 1521 DC IV 06/09 1522 Hydromorphone HCl 1 MG Q2-3 HRS NEEDED.. 06/09 0815 AC 06/10 IV 0640 Ibuprofen 800 MG .STK-MED ONE 06/09 1522 DC PO 06/09 1523 Magnesium Sulfate 1 GM Q2H 06/10 0900 AC 06/10 Dextrose/Water 100 ML IV 06/10 1259 0952 Magnesium Sulfate 1 GM ONCE ONE 06/09 0815 DC 06/09 Dextrose/Water 100 ML IV 06/09 1214 0928 Ondansetron HCl 4 MG Q6P PRN 06/09 0545 AC IV Pantoprazole Sodium 40 MG DAILY 06/09 1515 AC 06/10 IV 0952 Potassium Chloride 20 MEQ Q6H 06/10 0845 AC Dextrose/Sodium 1,000 ML IV Chloride Sodium Chloride 1,000 ML BOLUS ONE 06/10 0530 DC 06/10 IV 06/10 0629 0531 Vital Signs & I&O Last 24 Hrs of Vitals and I&O: Vital Signs Date Time Temp Pulse Resp B/P Pulse O2 O2 Flow FiO2 Ox Delivery Rate 06/10 0800 94 Nasal 1.0L Cannula 06/10 0800 96.8 114 19 98/48 97 Nasal 1.0L Cannula 06/10 0400 95 Nasal 2.0L Cannula 06/10 0000 98.5 110 12 106/58 94 Nasal 2.0L Cannula 06/10 0000 95 Nasal 2.0L Cannula 06/09 2000 95 Nasal 2.0L Cannula 06/09 1600 96.6 104 22 98/62 97 Nasal 3.0L Cannula 06/09 1600 96 Nasal 3.0L Cannula 06/09 1200 96 Ventilator 40% Intake & Output 06/10 1600 06/10 0800 06/10 0000 Intake Total 2010 1046 Output Total 390 380 Balance 1621 666 Intake, IV 2010 1036 Intake, Oral 0 10 Number 0 0 Bowel Movements Output, 50 80 Drainage Output, Urine 340 300 Impression/Plan Impression/Plan Impression/Plan: IMPRESSION This is a 55-year-old lady with history of LAP-BAND surgery, previous Eva-en-Y bypass, chronic venous insufficiency, lower extremity edema, recent laparoscopic mesh repair of the large ventral hernia in April 2016, remote history of diverticulitis now here with perforated sigmoid now status post surgery with Pizarro's procedure and irrigation of the peritoneum. Her issues include * Perforated large bowel with fecal peritonitis status post surgery with fever high risk for intra-abdominal abscesses in the future * History of depression stable * Morbid obesity stable RECOMMENDATIONS * Continue antibiotics * Continue intravenous fluids per * Heparin subcutaneous * Adequate pain control
[2016-06-10 16:00] VITALS: BP 94/52
[2016-06-11] VITALS: BP 92/58
--- NOTE | 2016-06-11 05:57 | PN- General Surgery ---
See Addendum Subjective Subjective: The patient was seen this morning postoperatively day #2. She reports feeling some mild generalized soreness in her abdomen which is adequately controlled with the current pain meds. She denies any nausea and vomitting, she denies chest pain, shortness of breath and difficulty breathing. She has no other complaints at the current time. Per nursing there were no significant events overnight. Objective Vital Signs and I&Os Vital Signs Date Time Temp Pulse Resp B/P Pulse O2 O2 Flow FiO2 Ox Delivery Rate 06/11 0000 100 Nasal 1.0L Cannula 06/11 0000 98.3 100 16 92/58 100 Nasal 1.0L Cannula 06/10 2000 95 Room Air Room Air 06/10 1600 94 Room Air Room Air 06/10 1600 97.6 108 22 94/52 96 Room Air Room Air 06/10 1200 97 Nasal 1.0L Cannula 06/10 0800 94 Nasal 1.0L Cannula 06/10 0800 96.8 114 19 98/48 97 Nasal 1.0L Cannula Intake & Output 06/11 0800 06/11 0000 06/10 1600 06/10 0800 06/10 0000 06/09 1600 Intake Total 1182 1459 2010 1046 1348 Output Total 440 480 390 380 635 Balance 195 662 2402 666 713 Intake, IV 1172 1459 2010 1036 1348 Intake, Oral 10 0 10 Number 0 0 0 Bowel Movements Output, 50 45 50 80 250 Drainage Output, Stool 10 10 Output, Urine 390 425 340 300 375 Physical Exam: General: Alert and oriented x3, no acute distress Cardiac: RRR, s1s2, HR in 94-100 Pulmonary: CTA bilaterally Abdomen: Softly distended, mild tenderness primarily in flaco-incisional area. No gas or stool in ostomy, small amounts of dark fluid noted Extremities: Moves all extremities, distal sensations intact, bilateral calves soft and non-tender Surgical site: Abdomen; dressing saturated with dark cloudy fluid. Taken down , no active drainage noted, packing inched out, clean dry dressing reapplied. Urine output: 40-55 cc/hour overnight Drainage: Left 40 cc recorded/ right 10 cc recorded on evening shift Assessment/Plan Assessment/Plan Assessment: 55-year-old female status post Pizarro's procedure for perforated diverticulitis postoperative day #2. The patient is progressing as expected and her pain is under adequate control. -Consider downgrade to telemetry today -Await bowel function, continue ice chips for now -Continue IV antibiotics -OOB today with PT -ALPS and sub Q heparin for dvt ppx -Consider d/c sanchez catheter when urine output remains adequate -Will d/w Dr. Guidry (covering for Dr. Newton) Core Measures/Miscellaneous Venous Thromboembolism VTE Risk Factors: Age > 40, Obesity, Surgery VTE Contraindications: No Contraindications VTE Prophylaxis Ordered Inpt Mech & Pharm VTE Diagnosis: No VTE Type: NONE VTE Confirmed by (Test): NONE Beta Ethan Is Beta Ethan a Home Med? No Antibiotics Is Patient on Antibiotics? Yes If Yes: infection
--- NOTE | 2016-06-11 06:52 | NUR ---
B/P 86/44, LEGS ELEVATED, REPEAT B/P 90/50. AVG URINE OUT PUT 30-40ML/HR FOR LAST 3 HRS. SURGICIAL PA MADE AWARE. NO NEW ORDERS.
[2016-06-11 08:00] VITALS: BP 92/0
--- NOTE | 2016-06-11 08:16 | PN- Resident [facility] ---
Objective Weaning Parameters NIF: 33 Minute Volume: 10.9 Resp rate: 17 Vt: 569 Heart Rate: 113 Weaning Schedule Start Time: 0930 Minute Volume: 10.9 Resp Rate: 17 Vt: 569 Heart Rate: 113 Impression/Plan Plan DVT/Prophylaxis: mechanical, pharmacological
[2016-06-11 09:49] LABS: ABSOLUTE BASOPHIL COUNT 0 /CUMM (0.0-0.2); ABSOLUTE EOSINOPHIL COUNT 0.1 /CUMM (0.0-0.7); ABSOLUTE LYMPH COUNT 0.7 /CUMM (1.2-3.4); ABSOLUTE MONOCYTE COUNT 0.4 /CUMM (0.10-0.60); BASOPHIL % 0.3 % (0.0-2.0); HEMATOCRIT 30.1 % (37-47); MEAN CORPUSCULAR HGB 28.3 PG (27.0-31.0); MEAN CORPUSCULAR HGB CONC 32.7 G/DL (33.0-37.0); MEAN CORPUSCULAR VOLUME 86.7 FL (81.0-99.0); MEAN PLATELET VOLUME 8.2 FL (7.4-10.4); PLATELET COUNT 170 /CUMM (130-400); RBC DISTRIBUTION WIDTH 14.6 % (11.5-14.5); RED BLOOD CELL CT 3.47 /CUMM (4.20-5.40); WHITE BLOOD CELL COUNT 7.3 /CUMM (4.8-10.8)
--- NOTE | 2016-06-11 11:32 | NUR ---
@0800-PT ALERT AND ORIENTED. CALM AND COOP. BP READING AUTO 72/40. DOPPLER BP TO L ARM 78/0. UNABLE TO CHECK DOPPLER BP TO R ARM DUE TO ONLY IV SITE TO RFA. DOPPLER BP TO R POST TIB, 92/DOPP. SURG PA, ANIBAL CHILDS AT BEDSIDE. NO NEW INTERVENTIONS AT THIS TIME. PAIN TOLERABLE AT THIS TIME, UNABLE TO MEDICATE PAIN AT THIS TIME DUE TO HYPOTENSIVE STATE. TITRATED TO RA FROM 1L, O2SAT 93-94%. LUNGS CLEAR. NSR ST HR 90S-110. ABD SOFT, HYPOACTIVE BS. L SIDED COLOSTOMY NOTED, PINK STOMA WITH MIN LIGHT BROWN LIQ NOTED IN OSTOMY BAG. JOHAN X 2 TO ABD-SERROUS OUTPUT. MIDLINE SURG INCISION ASSESSED BY SURG PA, STAPLE LINE NOTED WITH PACKING-NEW DSG APPLIED. MIN DRAINAGE NOTED. REMAINS NPO WITH ICE CHIPS AND SIPS OF H2O WITH MEDS. BLOCK IN PLACE WITH MIN OUTPUT 20-30ML HOURLY. UC, GM NEG RODS. PT AFEBRILE. PT EVAL ORD. IVF CONT D5NS WITH 20MEQ KCL INFUSING AT 125ML/HR. CBC DRAWN AT THIS TIME AND SENT TO LAB. CONT TO MONITOR, CALL SIMPSON WITHIN REACH.
--- NOTE | 2016-06-11 11:37 | NUR ---
@1000-OOB TO CHAIR WITH PHYSICAL THERAPY, ASSIST X 1. IVF CONT. BP REMAINS 100/DOPP WHEN CHECKED IN R POST TIB SITE. @1100-PT DOWNGRADED TO GM PER SURGICAL PA. CONT TO MONITOR. PLAN TO REMOVE UMAIR TODAY. CALL SIMPSON WITHIN REACH.
[2016-06-11 12:00] VITALS: BP 92/0
--- NOTE | 2016-06-11 13:12 | PN- Pulmonary ---
Subjective HPI/Critical Care Issues: The patient was seen this morning postoperatively day #2. She reports feeling some mild generalized soreness in her abdomen which is adequately controlled with the current pain meds. She denies any nausea and vomitting, she denies chest pain, shortness of breath and difficulty breathing. She has no other complaints at the current time. Per nursing there were no significant events overnight. Objective Current Medications: Current Medications Sig/Emmett Start time Last Medication Dose Route Stop Time Status Admin Acetaminophen 1,000 MG Q6P PRN 06/09 0545 AC IV Amitriptyline HCl 25 MG AT BEDTIME 06/090 AC 06/10 PO 2129 Ampicillin Sodium/ 3,000 MG Q6 06/09 0600 AC 06/11 Sulbactam Sodium IV 1146 Sodium Chloride 100 ML Bupropion HCl 300 MG QPM 06/09 2200 AC 06/10 PO 2129 Escitalopram Oxalate 20 MG QPM 06/09 2200 AC 06/10 PO 2129 Heparin Sodium 5,000 UNIT Q8 06/09 0600 AC 06/11 (Porcine) SC 0531 Hydromorphone HCl 1 MG Q2-3 HRS NEEDED.. 06/09 0815 AC 06/11 IV 1022 Ondansetron HCl 4 MG Q6P PRN 06/09 0545 AC IV Pantoprazole Sodium 40 MG DAILY 06/09 1515 AC 06/11 IV 1022 Potassium Chloride 20 MEQ Q6H 06/10 0845 AC 06/11 Dextrose/Sodium 1,000 ML IV 0845 Chloride Vital Signs & I&O Last 24 Hrs of Vitals and I&O: Vital Signs Date Time Temp Pulse Resp B/P Pulse O2 O2 Flow FiO2 Ox Delivery Rate 06/11 1200 98.6 101 24 92/0 93 Room Air 06/11 0800 97.8 93 16 92/0 95 Nasal 1.0L Cannula 06/11 0800 95 Nasal 1.0L Cannula 06/11 0400 95 Nasal 1.0L Cannula 06/11 0000 100 Nasal 1.0L Cannula 06/11 0000 98.3 100 16 92/58 100 Nasal 1.0L Cannula 06/10 2000 95 Room Air Room Air 06/10 1600 94 Room Air Room Air 06/10 1600 97.6 108 22 94/52 96 Room Air Room Air Intake & Output 06/11 1600 06/11 0800 06/11 0000 Intake Total 1022 1182 Output Total 395 440 Balance 627 742 Intake, IV 1022 1172 Intake, Oral 0 10 Number 0 Bowel Movements Output, 30 50 Drainage Output, Urine 365 390 Patient 337 lb Weight Impression/Plan Impression/Plan Impression/Plan: IMPRESSION This is a 55-year-old lady with history of LAP-BAND surgery, previous Eva-en-Y bypass, chronic venous insufficiency, lower extremity edema, recent laparoscopic mesh repair of the large ventral hernia in April 2016, remote history of diverticulitis now here with perforated sigmoid now status post surgery with Pizarro's procedure and irrigation of the peritoneum. Her issues include * Perforated large bowel with fecal peritonitis status post surgery with fever high risk for intra-abdominal abscesses in the future * History of depression stable * Morbid obesity stable RECOMMENDATIONS * Continue antibiotics * Continue intravenous fluids per surg, May reduce to 75 cc per hours * Dc sanchez in am per pts wishes * Heparin subcutaneous * Adequate pain control * Drop in crit prob due to hemodilution Ok to the floor no need for telemetry Will sign off Call if needed
--- NOTE | 2016-06-11 13:45 | NUR ---
@1200-ORDER NOTED TO DC BLOCK PER SURGICAL PA. WHEN INFORMED PT OF BLOCK REMOVAL, PT REFUSED FOR THIS RN TO REMOVE. STATES:" I JUST GOT OOB FOR THE FIRST TIME TODAY, AND I AM IN NO CONDITION TO GET OOB TO PEE MULTIPLE TIMES AND I AM NOT USING AT [facility]." ANIBAL CHILDS, PAC INFORMED OF PT RENEWEL. DC ORDER REMAINS AND SURGICAL PA INFORMED THAT BLOCK WAS NOT REMOVED BUT THERE WILL NOT BE A RENEWEL ORDER FOR TODAY. PT STATES: " WE CAN READDRESS THE BLOCK ISSUE TOMORROW." CONT TO MONITOR CLOSELY, CALL SIMPSON WITHIN REACH.
[2016-06-11 16:00] VITALS: BP 92/0
--- NOTE | 2016-06-11 16:09 | NUR ---
@1600-PT RESTING COMF IN BED. VSS. BP 92/DOPPLER TO L WRIST. UNABLE TO AUSCULTATE BP AND SURG PA AWARE OF NEED TO USE DOPPLER. PT DOWNGRADED TO [facility] AND ASSIGNED BED 215-2. VS TO BE OBTAINED Q4HRS. PAIN MILD AT THIS TIME AND DENIES NEED FOR PAIN MEDS AT THIS TIME. PT AWARE OF PLAN TO TRANSFER TO , AWAITING CALL TO GIVEN REPORT. IVF CONT AND DECREASED RATE OF 100ML/HR. CONT TO MONITOR, CALL SIMPSON WITHIN REACH. FAMILY AT BEDSIDE.
[2016-06-11 18:34] VITALS: BP 96/68
--- NOTE | 2016-06-11 20:00 | NUR ---
NURSING NOTE: PT HAD 2 ORDERS FOR 1L BOLUS AT 1000 ML/HR. SURGICAL PA NOTIFIED AND SAID THAT IT WAS D/C. THIS RN TOLD PA THAT ORDERS STILL SHOWING UP IN EMAR. PA STATED SHE DID NOT SEE THIS ORDERS ACTIVE ON HER SCREEN. PA STATED SHE DOES NOT NEED A BOLUS. NO BOLUS GIVEN PER SURGICAL PA. WILL CONTINUE TO MONITOR.
[2016-06-11 23:58] VITALS: BP 106/66
[2016-06-12 07:59] LABS: ABSOLUTE BASOPHIL COUNT 0 /CUMM (0.0-0.2); ABSOLUTE EOSINOPHIL COUNT 0.1 /CUMM (0.0-0.7); ABSOLUTE GRANULOCYTE CT 3.6 /CUMM (1.4-6.5); ABSOLUTE LYMPH COUNT 0.8 /CUMM (1.2-3.4); ABSOLUTE MONOCYTE COUNT 0.4 /CUMM (0.10-0.60); BASOPHIL % 0.2 % (0.0-2.0); EOSINOPHIL % 2.8 % (0-5); GRANULOCYTE % 71.7 % (42.2-75.2); HEMATOCRIT 29.4 % (37-47); MEAN CORPUSCULAR HGB 28.1 PG (27.0-31.0); MEAN CORPUSCULAR HGB CONC 32.8 G/DL (33.0-37.0); MEAN CORPUSCULAR VOLUME 85.9 FL (81.0-99.0); MEAN PLATELET VOLUME 8.1 FL (7.4-10.4); PLATELET COUNT 181 /CUMM (130-400); RBC DISTRIBUTION WIDTH 14.4 % (11.5-14.5); RED BLOOD CELL CT 3.42 /CUMM (4.20-5.40); WHITE BLOOD CELL COUNT 5.1 /CUMM (4.8-10.8)
[2016-06-12 09:18] VITALS: BP 100/62
--- NOTE | 2016-06-12 10:04 | PN- General Surgery ---
Surgical Brief Attending Note Brief Attending Note: bowel function returned. begin diet. d/c lower output drain.
--- NOTE | 2016-06-12 11:23 | PN- Pulmonary ---
Subjective HPI/Critical Care Issues: The patient was seen this morning. She reports feeling some mild generalized soreness in her abdomen which is adequately controlled with the current pain meds. She denies any nausea and vomitting, she denies chest pain, shortness of breath and difficulty breathing. Did have flatus Objective Current Medications: Current Medications Sig/Emmett Start time Last Medication Dose Route Stop Time Status Admin Acetaminophen 1,000 MG Q6P PRN 06/09 0545 AC IV Amitriptyline HCl 25 MG AT BEDTIME 06/09 2200 AC 06/11 PO 211 Ampicillin Sodium/ 3,000 MG Q6 06/09 0600 AC 06/12 Sulbactam Sodium IV 0536 Sodium Chloride 100 ML Bupropion HCl 300 MG QPM 06/09 2200 AC 06/11 PO 2114 Escitalopram Oxalate 20 MG QPM 06/09 220 AC 06/11 PO 2114 Heparin Sodium 5,000 UNIT Q8 06/09 06 AC 06/12 (Porcine) SC 0536 Hydromorphone HCl 1 MG Q2-3 HRS NEEDED.. 06/09 08 AC 06/12 IV 0824 Ondansetron HCl 4 MG Q6P PRN 06/09 0545 AC IV Pantoprazole Sodium 40 MG DAILY 06/09 1515 AC 06/11 IV 1022 Potassium Chloride 20 MEQ Q10H 06/12 0615 AC 06/12 Dextrose/Sodium 1,000 ML IV 0800 Chloride Potassium Chloride 20 MEQ Q10H 06/11 1330 DC 06/11 Dextrose/Sodium 1,000 ML IV 2116 Chloride Potassium Chloride 20 MEQ Q6H 06/10 0845 DC 06/11 Dextrose/Sodium 1,000 ML IV 0845 Chloride Vital Signs & I&O Last 24 Hrs of Vitals and I&O: Vital Signs Date Time Temp Pulse Resp B/P Pulse O2 O2 Flow FiO2 Ox Delivery Rate 06/12 917 98.2 96 20 100/62 95 Room Air 06/12 0000 Room Air 06/11 2358 97.8 103 20 106/66 94 06/11 1834 98.0 106 18 96/68 94 Room Air 06/11 1600 97.2 102 22 92/0 98 Room Air 06/11 1200 98.6 101 24 92/0 93 Room Air Intake & Output 06/12 1600 06/12 0800 06/12 0000 Intake Total 1000 400 Output Total 22 635 660 Balance -22 365 -260 Intake, IV 1000 400 Output, 22 35 10 Drainage Output, Urine 600 650 Laboratory Tests 06/12 06/11 0705 0840 Chemistry Sodium (137 - 145 mmol/L) 138 Potassium (3.5 - 5.1 mmol/L) 3.7 Chloride (98 - 107 mmol/L) 105 Carbon Dioxide (22 - 30 mmol/L) 27 Anion Gap (5 - 16) 6 BUN (7 - 17 mg/dL) 9 Creatinine (0.5 - 1.0 mg/dL) 0.5 Estimated GFR (>60 ml/min) > 60 BUN/Creatinine Ratio (7 - 25 %) 18.0 Phosphorus (2.5 - 4.5 mg/dL) 2.6 Magnesium (1.6 - 2.3 mg/dL) 2.0 Hematology CBC w Diff NO MAN DIFF REQ NO MAN DIFF REQ WBC (4.8 - 10.8 /CUMM) 5.1 7.3 RBC (4.20 - 5.40 /CUMM) 3.42 L 3.47 L Hgb (12.0 - 16.0 G/DL) 9.6 L 9.8 L Hct (37 - 47 %) 29.4 L 30.1 L MCV (81.0 - 99.0 FL) 85.9 86.7 MCH (27.0 - 31.0 PG) 28.1 28.3 RDW (11.5 - 14.5 %) 14.4 14.6 H Plt Count (130 - 400 /CUMM) 181 170 MPV (7.4 - 10.4 FL) 8.1 8.2 Gran % (42.2 - 75.2 %) 71.7 83.0 H Lymphocytes % (20.5 - 51.1 %) 16.5 L 9.5 L Monocytes % (1.7 - 9.3 %) 8.8 5.2 Eosinophils % (0 - 5 %) 2.8 2.0 Basophils % (0.0 - 2.0 %) 0.2 0.3 Absolute Granulocytes (1.4 - 6.5 /CUMM) 3.6 6.0 Absolute Lymphocytes (1.2 - 3.4 /CUMM) 0.8 L 0.7 L Absolute Monocytes (0.10 - 0.60 /CUMM) 0.4 0.4 Absolute Eosinophils (0.0 - 0.7 /CUMM) 0.1 0.1 Absolute Basophils (0.0 - 0.2 /CUMM) 0 0 PUBS MCHC (33.0 - 37.0 G/DL) 32.8 L 32.7 L 06/11 0510 Chemistry Sodium (137 - 145 mmol/L) 138 Potassium (3.5 - 5.1 mmol/L) 4.2 Chloride (98 - 107 mmol/L) 108 H Carbon Dioxide (22 - 30 mmol/L) 25 Anion Gap (5 - 16) 5 BUN (7 - 17 mg/dL) 11 Creatinine (0.5 - 1.0 mg/dL) 0.5 Estimated GFR (>60 ml/min) > 60 Glucose (65 - 99 mg/dL) 94 Calcium (8.4 - 10.2 mg/dL) 7.2 L Phosphorus (2.5 - 4.5 mg/dL) 2.2 L Magnesium (1.6 - 2.3 mg/dL) 2.0 Total Bilirubin (0.2 - 1.3 mg/dL) 0.6 AST (14 - 36 U/L) 17 ALT (9 - 52 U/L) 27 Albumin (3.5 - 5.0 g/dL) 1.9 L Microbiology Date/Time Procedure - Status Source Growth 06/09 2340 Urine Culture - COMP URINE OR ESCHERICHIA COLI Impression/Plan Impression/Plan Impression/Plan: IMPRESSION This is a 55-year-old lady with history of LAP-BAND surgery, previous Eva-en-Y bypass, chronic venous insufficiency, lower extremity edema, recent laparoscopic mesh repair of the large ventral hernia in April 2016, remote history of diverticulitis now here with perforated sigmoid now status post surgery with Pizarro's procedure and irrigation of the peritoneum. Her issues include * Perforated large bowel with fecal peritonitis status post surgery with fever high risk for intra-abdominal abscesses in the future * History of depression stable * Morbid obesity stable RECOMMENDATIONS * Continue antibiotics * Continue intravenous fluids per surg, May reduce to 75 cc per hours and dc if taking po * Heparin subcutaneous * Adequate pain control * Drop in crit prob due to hemodilution WIll follow prn
[2016-06-12 16:49] VITALS: BP 112/58
[2016-06-13 00:24] VITALS: BP 102/70
--- NOTE | 2016-06-13 07:37 | PN- General Surgery ---
See Addendum Subjective Subjective: NAEO. Patient without new c/o. Pain controlled. Tolerating clear liquid diet without n/v or abdominal discomfort. Ostomy has been filling up with gas but stool. OOB to bathroom but not ambulating in hallways. Denies CP/SOB. Objective Vital Signs and I&Os Vital Signs Date Time Temp Pulse Resp B/P Pulse O2 O2 Flow FiO2 Ox Delivery Rate 06/13 0024 98.0 92 20 102/70 97 06/12 1649 97.4 90 19 112/58 96 Room Air 06/12 0918 98.2 96 20 100/62 95 Room Air Intake & Output 06/13 0800 06/13 0000 06/12 1600 06/12 0800 06/12 0000 06/11 1600 Intake Total 1170 1000 1280 1110 Output Total 260 700 472 635 680 345 Balance -260 -700 698 365 600 765 Intake, IV 450 1000 800 990 Intake, Oral 720 480 120 Output, 10 22 35 20 25 Drainage Output, Stool 0 10 20 Output, Urine 250 700 450 600 650 300 Patient 337 lb Weight Physical Exam: General: NAD, comfortable, A&Ox3 Chest: NRD, breathing comfortably on RA. RRR. Abdomen: soft, nondistended. Appropriately tender to palpation. Midline incision intact with renée with 4 sections of packing with serosanguineous drainage. No surrounding erythema or swelling noted. Stoma pink and viable, ostomy with gas in bag but no stool. +Bowel sounds x4 quadrants Ext: No calve swelling/TTP, neurovascularly intact bilateral lower extremities Current Medications: Current Medications Sig/Emmett Start time Last Medication Dose Route Stop Time Status Admin Acetaminophen 1,000 MG Q6P PRN 06/09 0545 AC IV Amitriptyline HCl 25 MG AT BEDTIME 06/09 2199 AC 06/12 PO 2253 Ampicillin Sodium/ 3,000 MG Q6 06/09 06 AC 06/13 Sulbactam Sodium IV 0741 Sodium Chloride 100 ML Bupropion HCl 300 MG QPM 06/090 AC 06/12 PO 225 Escitalopram Oxalate 20 MG QPM 06/09 2199 AC 06/12 PO 225 Heparin Sodium 5,000 UNIT Q8 06/09 06 AC 06/13 (Porcine) SC 0621 Hydromorphone HCl 1 MG Q2-3 HRS NEEDED.. 06/09 0815 AC 06/13 IV 0620 Ondansetron HCl 4 MG Q6P PRN 06/09 0545 AC IV Pantoprazole Sodium 40 MG DAILY 06/09 1515 AC 06/12 IV 1142 Potassium Chloride 20 MEQ Q20H 06/13 0745 AC Dextrose/Sodium 1,000 ML IV Chloride Potassium Chloride 20 MEQ Q10H 06/12 0615 DC 06/12 Dextrose/Sodium 1,000 ML IV 2253 Chloride Results Last 48 Hours of Labs: Laboratory Tests 06/12 06/11 0705 0840 Chemistry Sodium (137 - 145 mmol/L) 138 Potassium (3.5 - 5.1 mmol/L) 3.7 Chloride (98 - 107 mmol/L) 105 Carbon Dioxide (22 - 30 mmol/L) 27 Anion Gap (5 - 16) 6 BUN (7 - 17 mg/dL) 9 Creatinine (0.5 - 1.0 mg/dL) 0.5 Estimated GFR (>60 ml/min) > 60 BUN/Creatinine Ratio (7 - 25 %) 18.0 Phosphorus (2.5 - 4.5 mg/dL) 2.6 Magnesium (1.6 - 2.3 mg/dL) 2.0 Hematology CBC w Diff NO MAN DIFF REQ NO MAN DIFF REQ WBC (4.8 - 10.8 /CUMM) 5.1 7.3 RBC (4.20 - 5.40 /CUMM) 3.42 L 3.47 L Hgb (12.0 - 16.0 G/DL) 9.6 L 9.8 L Hct (37 - 47 %) 29.4 L 30.1 L MCV (81.0 - 99.0 FL) 85.9 86.7 MCH (27.0 - 31.0 PG) 28.1 28.3 RDW (11.5 - 14.5 %) 14.4 14.6 H Plt Count (130 - 400 /CUMM) 181 170 MPV (7.4 - 10.4 FL) 8.1 8.2 Gran % (42.2 - 75.2 %) 71.7 83.0 H Lymphocytes % (20.5 - 51.1 %) 16.5 L 9.5 L Monocytes % (1.7 - 9.3 %) 8.8 5.2 Eosinophils % (0 - 5 %) 2.8 2.0 Basophils % (0.0 - 2.0 %) 0.2 0.3 Absolute Granulocytes (1.4 - 6.5 /CUMM) 3.6 6.0 Absolute Lymphocytes (1.2 - 3.4 /CUMM) 0.8 L 0.7 L Absolute Monocytes (0.10 - 0.60 /CUMM) 0.4 0.4 Absolute Eosinophils (0.0 - 0.7 /CUMM) 0.1 0.1 Absolute Basophils (0.0 - 0.2 /CUMM) 0 0 PUBS MCHC (33.0 - 37.0 G/DL) 32.8 L 32.7 L Assessment/Plan Assessment/Plan 55yo F POD#4 s/p ex-lap, Sera's procedure with JOHAN drain placement. AVSS, patient progressing. - Full liquid diet this morning - halve IVF - Possibly dc remaining JOHAN drain - OOB and ambulate in hallways - continue Unasyn - I/O's - SC heparin and ALPS for DVT PPx - PRN zofran - DC planning, ostomy teaching - Will d/w attending Core Measures/Miscellaneous Venous Thromboembolism VTE Risk Factors: Age > 40, Obesity, Surgery VTE Contraindications: No Contraindications VTE Prophylaxis Ordered Inpt Mech & Pharm VTE Diagnosis: No VTE Type: NONE VTE Confirmed by (Test): NONE Beta Ethan Is Beta Ethan a Home Med? No Antibiotics Is Patient on Antibiotics? Yes If Yes: infection
[2016-06-13 08:22] LABS: ABSOLUTE BASOPHIL COUNT 0 /CUMM (0.0-0.2); ABSOLUTE EOSINOPHIL COUNT 0.2 /CUMM (0.0-0.7); ABSOLUTE GRANULOCYTE CT 2.8 /CUMM (1.4-6.5); ABSOLUTE MONOCYTE COUNT 0.5 /CUMM (0.10-0.60); BASOPHIL % 0.4 % (0.0-2.0); EOSINOPHIL % 5.4 % (0-5); GRANULOCYTE % 61.2 % (42.2-75.2); MEAN CORPUSCULAR HGB 28.1 PG (27.0-31.0); MEAN CORPUSCULAR HGB CONC 32.8 G/DL (33.0-37.0); MEAN PLATELET VOLUME 8.2 FL (7.4-10.4); PLATELET COUNT 200 /CUMM (130-400); RBC DISTRIBUTION WIDTH 14.4 % (11.5-14.5); RED BLOOD CELL CT 3.37 /CUMM (4.20-5.40); WHITE BLOOD CELL COUNT 4.6 /CUMM (4.8-10.8)
[2016-06-13] MEDS ORDERED: PERCOCET 5-3251 EACH PO (08:44)
--- NOTE | 2016-06-13 08:49 | Patient Discharge Instructions ---
Discharge Instructions General Discharge Information You were seen/treated for: Peritonitis, perforated descending colon You had these procedures: 06/09/16 Pizarro's procedure Watch for these problems: Redness, swelling, fever, purulent drainage, signs of infection. Uncontrolled pain. Excessive bleeding. Inability to tolerate diet. No output from Colostomy. Chest pain. Shortness of breath. Call Surgeon to remove: Jimbo (10-14 days post operatively) Do not soak the wound: Yes No bath, but you may shower: Yes Other wound care: Daily dry dressing changes Special Instructions: Ostomy teaching prior to discharge. Diet Continue normal diet: Yes Activity Full Activity/No Limits: No Pounds, do NOT lift more than: 15 Other activity limits: No strenuous activity and/or exercise. Acute Coronary Syndrome Inclusion Criteria At DC or during hospital stay patient has or had the following: ACS DIAGNOSIS No Discharge Core Measures Meds if any: Prescribed or Continued at Discharge Meds if any: NOT Prescribed or Continued at Discharge Congestive Heart Failure Inclusion Criteria At DC or during hospital stay patient has or had the following: CHF DIAGNOSIS No Discharge Core Measures Meds if any: Prescribed or Continued at Discharge Meds if any: NOT Prescribed or Continued at Discharge Cerebrovascular accident Inclusion Criteria At DC or during hospital stay patient has or had the following: CVA/TIA Diagnosis No Discharge Core Measures Meds if any: Prescribed or Continued at Discharge Meds if any: NOT Prescribed or Continued at Discharge Venous thromboembolism Inclusion Criteria VTE Diagnosis No VTE Type NONE VTE Confirmed by (Test) NONE Discharge Core Measures - Per Current guidelines, there needs to be overlap - treatment for the first 5 days of Warfarin therapy. - If discharged on Warfarin prior to 5 days of - overlap therapy, the patient will need to be - assessed for post discharge needs including - *Post discharge parental anticoagulation - *Warfarin and/or parental anticoagulation education - *Follow up date to check INR post discharge At least 5 days overlap therapy as Inpatient No Meds if any: Prescribed or Continued at Discharge Note: Overlap Therapy is Warfarin and Anticoagulant Meds if any: NOT Prescribed or Continued at Discharge
[2016-06-13 08:53] VITALS: BP 102/60
[2016-06-13 16:27] VITALS: BP 102/68
[2016-06-13 19:26] VITALS: BP 108/70
--- NOTE | 2016-06-14 00:09 | NUR ---
ALERT AND ORIENTED X 3. VITAL SIGNS STABLE. DENIES CHEST PAIN. + PULSES STEADY GAIT. OSTOMY CARE GIVEN. MEDICATION GIVEN FOR DISCOMFORT PATIENT RESTING AT THIS TIME. WILL CONTINUE TO MONITOR
[2016-06-14 01:18] VITALS: BP 116/57
[2016-06-14 08:02] VITALS: BP 108/72
[2016-06-14] MEDS ORDERED: AUGMENTIN 875-1 EACH PO (11:48)
--- NOTE | 2016-06-14 12:31 | NUR ---
NURSING NOTE: PT ABLE TO DEMONSTRATE ABILITY FOR OWN OSTOMY CARE. DISCHARGE INSTRUCTIONS AND PRECRIPTIONS GIVEN WITH VERBAL UNDERSTANDING.
--- NOTE | 2016-06-14 12:49 | NUR ---
OSTOMY CARE: PT SEEN TODAY AROUND 1130 FOR DC OSTOMY EDUCATION - PLEASANT AND IN [facility] S/P RECENT SURGERY - LEFT LOWER QUADRANT END STOMA MIN PROTRUDING SINGLE LUMEN S/P HARTMANS PROCEDURE - MID LINE INCISION NOTED WELL WITH 3 ADJACENT PUNCTURE SITES DRNG SEROSANG - NO EVIDENCE OF INFECTION - REVIEWED DIETARY MANAGEMENT, APPLIANCE TYPES AND PT PREFERENCES, HOME CARE, EMPTYING OF POUCH AND WAFER CHANGES AND PERISTOMAL SKIN COMPLICATIONS - PT ALSO REQUESTED EDUCATION RE: SEXUAL ACTIVITY S/P OSTOMY WHICH WAS PROVIDED WELL - COMPLETE APPLIANCE CHANGE BY THIS GORE MAKER WITH VERBAL EDUCATION AND MINIMAL HANDS ON ASSITANCE WITH PT - STATED AN UNDERSTANDING - PT TO BE DC WITH VISITING NURSE SERVICES - PROVIDED WITH 2 BOXES OF SAMPLES FOR OSTOMY AT HOME RECOMMENDATION: PT HAS REQUESTED DISCREET APPLIANCE, AND THEREFORE WOULD RECOMMEND [employer] SYSTEM- SURFIT NATURA MOLDABLE SKIN BARRIER 2 3/ (BLUE PACKAGE) - F/U AT [facility] NEEDED
--- NOTE | 2016-06-15 10:42 | Surgical Discharge Summary ---
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 Home Who Do You Live With? Spouse Services at Home: None What is Your Primary Language? Solomon Islander ETOH Use: denies use Review of Systems: NOT ASSESSED AT D/C Hospital Course Course Attending Physician: AUBREY MCCARTY,DONNIE Patricia Primary Care Physician: DEE HOLLINGSWORTH MD Hospital Course: Admitted to ICU after undergoing emergency laparotomy for perforation of the descending colon. Resection and end colostomy performed. She remained hemodynamically stable and was rescucitated with iv fluids. When ileus resolved, she was started on a diet. She was maintained on iv antibiotics which were transitioned to oral at d/c. Home nursing arranged for wound care and colostomy teaching. Allergies: Coded Allergies: aspirin (CONJUNCTIVAL SWELLING 04/23/16) cephalexin (From KEFLEX) (RASH 04/23/16) Uncoded Allergies: SEEDS (UNKNOWN 02/15/13) Significant Procedures: SIGMOID COLECTOMY WITH END COLOSTOMY Disposition Summary Disposition Principal Diagnosis: COLONIC PERFORATION Additional Diagnosis: morbid obesity Discharge Disposition: home health services Discharge Instructions General Discharge Information Code Status: Full Code Patient's Diet: LOW FIBER Patient's Activity: NO LIFTING Follow-Up Instructions/Appts: 2 WEEKS FOR STAPLE REMOVAL. Medications at Discharge Discharge Medications: Continue taking these medications: Amitriptyline HCl (Amitriptyline HCl) 25 MG TABLET 1 Tablet ORAL Every night Comments: Last Taken: 06/13/16 Time: 9:30 PM Bupropion HCl (Wellbutrin XL) 300 MG TAB.ER.24H 300 Milligram ORAL Every night Comments: Last Taken: 06/13/16 Time: 9:30 PM Escitalopram Oxalate (Lexapro) 20 MG TABLET 1 Tablet ORAL Every night Comments: Last Taken: 06/13/16 Time: 9:30 PM Tramadol HCl (Ultram) 50 MG TABLET 1 Tablet ORAL EVERY 8 HOURS NEEDED as needed for PAIN Comments: NOT GIVEN IN HOSPITAL Multivitamin (Multi-Day Vitamins) 1 EACH TABLET 1 Tablet ORAL DAILY Comments: NOT GIVEN IN HOSPITAL Start taking the following new medications: Amoxicillin/Potassium Clav (Augmentin 875-125 Tablet) 875 MG-125 MG TABLET 1 Tablet ORAL TWICE DAILY Qty = 20 No Refills Comments: NOT GIVEN IN HOSPITAL The following medications have been changed: Old: Oxycodone HCl/Acetaminophen (Percocet 5-325 MG Tablet) 5 MG-325 MG TABLET 2 Tablet ORAL 4 TIMES A DAY New: Oxycodone HCl/Acetaminophen (Percocet 5-325 MG Tablet) 5 MG-325 MG TABLET 1-2 Tablet ORAL Q4-6P as needed for PAIN Qty = 30 Comments: Last Taken: 06/14/16 Time: 12:00 PM
== END 2016-06-14 12:32 | disposition home health service (06) | DRG 329 ==
LOC: ERH 16:12 → 2NB 06-09 05:25 → CRI 06-09 05:25 → ENPENDDIS 06-09 05:25 → 2NB 06-11 17:46
PROVIDERS: Nurse Practitioner; Physician Assistant; Physician Assistant Surgical; ADMIT Surgery
PROC: 0D1M0Z4 Bypass Descending Colon to Cutaneous, Open Approach (ICD-10-PCS; principal; 2016-06-08)
PROC: 0DTM0ZZ Resection of Descending Colon, Open Approach (ICD-10-PCS; principal; 2016-06-08)
PROC: 0DTN0ZZ Resection of Sigmoid Colon, Open Approach (ICD-10-PCS; principal; 2016-06-08)
PROC: 0DTG0ZZ Resection of Left Large Intestine, Open Approach (ICD-10-PCS; principal; 2016-06-08)
PROC: 0BH17EZ Insertion of Endotracheal Airway into Trachea, Via Natural or Artificial Opening (ICD-10-PCS; 2016-06-09)
PROC: 5A1935Z Respiratory Ventilation, Less than 24 Consecutive Hours (ICD-10-PCS; 2016-06-09)
DX: K63.1 Perforation of intestine (nontraumatic) (principal); J95.821 Acute postprocedural respiratory failure; K65.9 Peritonitis, unspecified; Z68.43 Body mass index [BMI] 50.0-59.9, adult; T81.4XXA Infection following a procedure, initial encounter; E66.01 Morbid (severe) obesity due to excess calories; Z98.84 Bariatric surgery status; I87.2 Venous insufficiency (chronic) (peripheral); Y83.2 Surgical operation with anastomosis, bypass or graft as the cause of abnormal reaction of the patient, or of later complication, without mention of misadventure at the time of the procedure; Y92.234 Operating room of hospital as the place of occurrence of the external cause
CPT/HCPCS: 2NBSP; CCU; 36415; 74177; 81001; 82436; 87040; 87086; 88305; 88307; 93005; 93010; 96374; 96375; 96376; 97110-GO; 97116-GO; 97162-GP; 97530-GO; 99291; J0131; J1100; J1170; J1644; J2250; J2405; J3010; J7040; J7042; J7060; S5012

== ENCOUNTER 2016-09-16 01:57 | Inpatient (IN) | payer OTHER ==
[~2016-09-16] VITALS: Ht 154.9 cm; Wt 131.5 kg
[~2016-09-16 01:57] MED LIST changes: +AUGMENTIN 875-1 EACH PO; +PERCOCET 5-3251 EACH PO
--- NOTE | 2016-09-16 18:12 | Admission Core Measures ---
Admission Meds I reviewed the following Meds: Current Medications Sig/Emmett Start time Last Medication Dose Stop Time Status Admin Amitriptyline HCl 25 MG QPM 09/16 2199 UNVr (Elavil 25 Mg. Tablet) Bupropion HCl 300 MG QPM 09/16 2199 UNVr (Wellbutrin XL) Ceftriaxone Sodium 1,000 MG ONCE 09/16 0000 NR (Rocephin) 09/16 2358 Escitalopram Oxalate 20 MG QPM 09/16 2199 UNVr (Lexapro) Metronidazole 500 MG ONCE 09/16 0000 NR (Flagyl) 09/16 2358 Sodium Chloride 100 ML (Normal Saline 0.9%) Acute Coronary Syndrome Inclusion Criteria ACS Diagnosis No Inpatient Core Measures LDL Reminder: If No, please order W/I first 24hr of stay Congestive Heart Failure Inclusion Criteria CHF Diagnosis No Cerebrovascular accident Inclusion Criteria CVA/TIA Diagnosis No Inpatient Core Measures Bedside Swallow Eval Reminder: If BSE failed, place ST order Antithrombotic Reminder: Order Antithrombotic Medication by end of day 2 Antithrombotic Reminder: Document Reason Antithrombotic Not ordered by end of day 2 AFIB/Flutter Reminder: If Present, add to problem list AFIB/Flutter Reminder: Order Anticoag Medication for pts with AFIB/Flutter Atherosclerosis Reminder: If Present, add to problem list LDL Reminder: If No, please order W/I first 24hr of stay PT Order Reminder: If No, please order Venous thromboembolism Inpatient Core Measures VTE Risk Factors: Age > 40, Surgery No [facility] VTE prophylaxis d/t No contraindications No VTE Pharm Prophylaxis d/t No contraindications Inclusion Criteria - Per Current guidelines, there needs to be overlap - treatment for the first 5 days of Warfarin therapy. - Parenteral Anticoagulation (IV or SC) needs to be - given along with Warfarin therapy. VTE Diagnosis No VTE Type NONE VTE Confirmed by (Test) NONE Problem List As ranked by this Provider includes Assessment & Plan 1. History of colostomy reversal HOME MEDS Home Med List Amitriptyline HCl 25 MG TABLET 1 TAB PO QPM TMJ (Reported) Bupropion HCl (Wellbutrin XL) 300 MG TAB.ER.24H 300 MG PO QPM DEPRESSION ( Reported) Escitalopram Oxalate (Lexapro) 20 MG TABLET 1 TAB PO QPM DEPRESSION (Reported )
[2016-09-16 20:27] VITALS: BP 114/72
--- NOTE | 2016-09-16 20:48 | PN- General Surgery ---
Subjective Subjective: POC c/o anal pain and LUE pain and heaviness, mild abd pain, no bowel fxn, no n/v/cp /sob Objective Vital Signs and I&Os Vital Signs Date Time Temp Pulse Resp B/P B/P Pulse O2 O2 Flow FiO2 Mean Ox Delivery Rate 09/16 2225 98.2 88 20 116/68 95 Room Air 09/16 2026 98.1 96 16 114/72 95 Room Air Physical Exam: GEN: NAD CARD: S1S2 RRR PULM: CTAB ABD: obese, soft, min ttp, dressings with mild serosang staining EXT: calves soft nt bl, ALPS on. LUE palp radial pulse, arm warm, technical trainer 5/5, eccymoses at area of tenderness mid-forearm, gross sensation intact, though left midforearm mildly decreased sensate Assessment/Plan Assessment/Plan A: 56F POD0 sp colostomy reversal (sp hartmanns in 05/2016), LUE pain/decreased sensation likely due to OR positioning and possible IV access attempt, with anorectal pain related to digital removal of old stool intraoperatively. P: - npo x home meds, ivf, await bowel fxn - prn pain meds - ALPS, hep sq - abx x23h postop - packing change POD2 per MD - am labs - titrate o2 - topical lidocaine jelly to anorectal region - will dw attending Core Measures/Miscellaneous Venous Thromboembolism VTE Risk Factors: Age > 40, Surgery VTE Contraindications: No Contraindications VTE Diagnosis: No VTE Type: NONE VTE Confirmed by (Test): NONE Beta Ethan Is Beta Ethan a Home Med? No Antibiotics Is Patient on Antibiotics? Yes If Yes: prophylaxis
[2016-09-16 22:26] VITALS: BP 116/68
[2016-09-17 01:06] VITALS: BP 112/66
[2016-09-17 03:02] VITALS: BP 129/69
[2016-09-17 07:00] VITALS: BP 117/49
[2016-09-17 08:36] LABS: ABSOLUTE BASOPHIL COUNT 0 /CUMM (0.0-0.2); ABSOLUTE EOSINOPHIL COUNT 0 /CUMM (0.0-0.7); ABSOLUTE GRANULOCYTE CT 7.6 /CUMM (1.4-6.5); ABSOLUTE LYMPH COUNT 1.1 /CUMM (1.2-3.4); ABSOLUTE MONOCYTE COUNT 0.6 /CUMM (0.10-0.60); BASOPHIL % 0.3 % (0.0-2.0); EOSINOPHIL % 0.3 % (0-5); GRANULOCYTE % 81.8 % (42.2-75.2); HEMATOCRIT 35.8 % (37-47); MEAN CORPUSCULAR HGB 26.9 PG (27.0-31.0); MEAN CORPUSCULAR HGB CONC 32.6 G/DL (33.0-37.0); MEAN CORPUSCULAR VOLUME 82.7 FL (81.0-99.0); MEAN PLATELET VOLUME 9.1 FL (7.4-10.4); PLATELET COUNT 208 /CUMM (130-400); RED BLOOD CELL CT 4.33 /CUMM (4.20-5.40)
[2016-09-17 10:53] LABS: WHITE BLOOD CELL COUNT 9.3 /CUMM (4.8-10.8)
[2016-09-17 11:04] VITALS: BP 118/76
--- NOTE | 2016-09-17 14:06 | PN- General Surgery ---
See Addendum Subjective Subjective: Patient is comfortable, pain is controlled better with Percocet, no flatus yet, she is tolerating ice chips. No fever or flulike illness overnight Objective Vital Signs and I&Os Vital Signs Date Time Temp Pulse Resp B/P B/P Pulse O2 O2 Flow FiO2 Mean Ox Delivery Rate 09/17 1104 98.1 95 20 118/76 95 Room Air 09/17 0700 98.1 95 18 117/49 94 Room Air 09/17 0302 98.5 89 18 129/69 93 Room Air 09/17 0106 98.9 99 20 112/66 94 Room Air 09/16 2226 98.2 88 20 116/68 95 Room Air 09/16 2027 98.1 96 16 114/72 95 Room Air Intake & Output 09/17 1600 09/17 0809/17 0000 09/16 1600 09/16 0809/16 0000 Intake Total 600 75 Output Total 300 200 Balance 300 -125 Intake, IV 600 75 Intake, Oral 0 0 Output, Urine 300 200 Patient 290 lb Weight Weight Reported by Patient Measurement Method Physical Exam: Well-developed well-nourished no apparent distress. HEENT: Atraumatic, extraocular motion intact Neck: Supple, no lymphadenopathy Respiratory: No respiratory distress Abdomen: Dressings with mild serosanguineous drainage, mild to moderate central and epigastric abdominal tenderness. Bowel sounds hypoactive. Extremities: No edema, no calf pain Neuro: Alert and oriented x3 Psych: Mood affect normal, normal memory normal judgment. Skin: Warm and dry, no rash on exposed skin Results Last 48 Hours of Labs: Laboratory Tests 09/17 0632 Chemistry Sodium (137 - 145 mmol/L) 136 L Potassium (3.5 - 5.1 mmol/L) 4.3 Chloride (98 - 107 mmol/L) 101 Carbon Dioxide (22 - 30 mmol/L) 26 Anion Gap (5 - 16) 9 BUN (7 - 17 mg/dL) 11 Creatinine (0.5 - 1.0 mg/dL) 0.8 Estimated GFR (>60 ml/min) > 60 BUN/Creatinine Ratio (7 - 25 %) 13.8 Hematology CBC w Diff NO MAN DIFF REQ WBC (4.8 - 10.8 /CUMM) 9.3 RBC (4.20 - 5.40 /CUMM) 4.33 Hgb (12.0 - 16.0 G/DL) 11.7 L Hct (37 - 47 %) 35.8 L MCV (81.0 - 99.0 FL) 82.7 MCH (27.0 - 31.0 PG) 26.9 L RDW (11.5 - 14.5 %) 14.0 Plt Count (130 - 400 /CUMM) 208 MPV (7.4 - 10.4 FL) 9.1 Gran % (42.2 - 75.2 %) 81.8 H Lymphocytes % (20.5 - 51.1 %) 11.4 L Monocytes % (1.7 - 9.3 %) 6.2 Eosinophils % (0 - 5 %) 0.3 Basophils % (0.0 - 2.0 %) 0.3 Absolute Granulocytes (1.4 - 6.5 /CUMM) 7.6 H Absolute Lymphocytes (1.2 - 3.4 /CUMM) 1.1 L Absolute Monocytes (0.10 - 0.60 /CUMM) 0.6 Absolute Eosinophils (0.0 - 0.7 /CUMM) 0 Absolute Basophils (0.0 - 0.2 /CUMM) 0 PUBS MCHC (33.0 - 37.0 G/DL) 32.6 L Assessment/Plan Assessment/Plan 56F POD 1 sp colostomy reversal (sp hartmanns in 05/2016) P: - ice chips, ivf, await bowel fxn - prn pain meds - ALPS, hep sq - packing change POD2 per MD - am labs - LUE pain, minimal swelling, likely due to OR positioning and possible IV access attempt, will monitor, if swelling increases, US LUE to r/o dvt. Core Measures/Miscellaneous Venous Thromboembolism VTE Risk Factors: Age > 40, Surgery VTE Contraindications: No Contraindications VTE Diagnosis: No VTE Type: NONE VTE Confirmed by (Test): NONE Beta Ethan Is Beta Ethan a Home Med? No Antibiotics Is Patient on Antibiotics? Yes If Yes: prophylaxis
[2016-09-17 14:59] VITALS: BP 114/76
--- NOTE | 2016-09-18 07:14 | PN- General Surgery ---
Subjective Subjective: Feeling better today, out of bed in the chair and walking the halls, passing flatus, no bowel movement, no nausea or vomiting, hungry, abdominal pain well- controlled, no chest pain or shortness of breath, left upper extremity much improved and complains of only minimal pain in mid forearm without paresthesias Objective Vital Signs and I&Os Vital Signs Date Time Temp Pulse Resp B/P B/P Pulse O2 O2 Flow FiO2 Mean Ox Delivery Rate 09/17 1459 98.4 92 20 114/76 96 Room Air 09/17 1104 98.1 95 20 118/76 95 Room Air Intake & Output 09/18 0809/18 0000 09/17 1600 09/17 0809/17 0000 09/16 1600 Intake Total 660 345 750 600 75 Output Total 475 350 450 300 200 Balance 185 -5 300 300 -125 Intake, IV 600 225 700 600 75 Intake, Oral 60 120 50 0 0 Output, Urine 475 350 450 300 200 Patient 290 lb Weight Weight Reported by Patient Measurement Method Physical Exam: GEN: NAD CARD: s1s2 RRR PULM: CTAB ABD: Obese, soft, nd, mildly ttp throughout, +bs, dressings removed: Old ostomy site packing removed, old bloody drainage on packing, repacked with packing strip and covered with dry gauze, staple line CDI without erythema. Midline staple line CDI without erythema, superior and inferior packing removed with old bloody drainage on packing, packing replaced and covered with dry gauze. EXT: calves soft nt bl, no edema. LUE + radial pulse, mildly ttp in mid forearm to medial antecubital fossa, no erythema, Tongue Trimmer 5 out of 5, no hand edema Results Last 48 Hours of Labs: Laboratory Tests 09/18 09/17 0626 0632 Chemistry Sodium (137 - 145 mmol/L) 136 L 136 L Potassium (3.5 - 5.1 mmol/L) 3.6 4.3 Chloride (98 - 107 mmol/L) 102 101 Carbon Dioxide (22 - 30 mmol/L) 25 26 Anion Gap (5 - 16) 8 9 BUN (7 - 17 mg/dL) 10 11 Creatinine (0.5 - 1.0 mg/dL) 0.7 0.8 Estimated GFR (>60 ml/min) > 60 > 60 BUN/Creatinine Ratio (7 - 25 %) 14.3 13.8 Hematology CBC w Diff Pending NO MAN DIFF REQ WBC (4.8 - 10.8 /CUMM) Pending 9.3 RBC (4.20 - 5.40 /CUMM) Pending 4.33 Hgb (12.0 - 16.0 G/DL) Pending 11.7 L Hct (37 - 47 %) Pending 35.8 L MCV (81.0 - 99.0 FL) Pending 82.7 MCH (27.0 - 31.0 PG) Pending 26.9 L RDW (11.5 - 14.5 %) Pending 14.0 Plt Count (130 - 400 /CUMM) Pending 208 MPV (7.4 - 10.4 FL) Pending 9.1 Gran % (42.2 - 75.2 %) 81.8 H Lymphocytes % (20.5 - 51.1 %) 11.4 L Monocytes % (1.7 - 9.3 %) 6.2 Eosinophils % (0 - 5 %) 0.3 Basophils % (0.0 - 2.0 %) 0.3 Absolute Granulocytes (1.4 - 6.5 /CUMM) 7.6 H Absolute Lymphocytes (1.2 - 3.4 /CUMM) 1.1 L Absolute Monocytes (0.10 - 0.60 /CUMM) 0.6 Absolute Eosinophils (0.0 - 0.7 /CUMM) 0 Absolute Basophils (0.0 - 0.2 /CUMM) 0 PUBS MCHC (33.0 - 37.0 G/DL) Pending 32.6 L Assessment/Plan Assessment/Plan A: 56F POD2 sp colostomy reversal, passing flatus and feeling well. LUE pain improved, likely due to OR positioning, will continue to monitor P: -Clear liquid diet - Hep lock - prn pain meds - ALPS, hep sq, OOB, ambulate - labs pdg - LUE: Improved. If worsens check ultrasound to rule out DVT - topical lidocaine jelly to anorectal area prn - will dw attending Core Measures/Miscellaneous Venous Thromboembolism VTE Risk Factors: Age > 40, Surgery VTE Contraindications: No Contraindications VTE Diagnosis: No VTE Type: NONE VTE Confirmed by (Test): NONE Beta Ethan Is Beta Ethan a Home Med? No Antibiotics Is Patient on Antibiotics? Yes If Yes: prophylaxis
[2016-09-18 07:30] VITALS: BP 99/46
[2016-09-18 07:54] LABS: ABSOLUTE BASOPHIL COUNT 0 /CUMM (0.0-0.2); ABSOLUTE EOSINOPHIL COUNT 0.3 /CUMM (0.0-0.7); ABSOLUTE GRANULOCYTE CT 6.5 /CUMM (1.4-6.5); ABSOLUTE LYMPH COUNT 0.9 /CUMM (1.2-3.4); ABSOLUTE MONOCYTE COUNT 0.7 /CUMM (0.10-0.60); BASOPHIL % 0.3 % (0.0-2.0); EOSINOPHIL % 3.1 % (0-5); GRANULOCYTE % 77.3 % (42.2-75.2); HEMATOCRIT 32.4 % (37-47); MEAN CORPUSCULAR HGB 27.1 PG (27.0-31.0); MEAN CORPUSCULAR HGB CONC 32.7 G/DL (33.0-37.0); MEAN CORPUSCULAR VOLUME 82.7 FL (81.0-99.0); PLATELET COUNT 194 /CUMM (130-400); RBC DISTRIBUTION WIDTH 14.3 % (11.5-14.5); RED BLOOD CELL CT 3.92 /CUMM (4.20-5.40); WHITE BLOOD CELL COUNT 8.5 /CUMM (4.8-10.8)
[2016-09-18 09:00] VITALS: BP 104/72
[2016-09-18 14:26] VITALS: BP 110/70
[2016-09-18 22:02] VITALS: BP 108/68
[2016-09-19 07:46] VITALS: BP 91/50
--- NOTE | 2016-09-19 08:13 | PN- General Surgery ---
Subjective Subjective: pod#3 s/p colostomy reversal feeling alot better today states she had two normal bm's last night tolerating clears no major issues ovenight denies cp, sob, no n+v with diet Objective Vital Signs and I&Os Vital Signs Date Time Temp Pulse Resp B/P B/P Pulse O2 O2 Flow FiO2 Mean Ox Delivery Rate 09/182 97.6 79 18 108/68 96 Room Air 09/18 1426 97.9 93 20 110/70 99 Room Air 09/18 0900 100 104/72 Intake & Output 09/19 1600 09/19 0809/19 0000 09/18 1600 09/18 0809/18 0000 Intake Total 240 240 750 660 345 Output Total 250 650 475 350 Balance 240 -10 100 185 -5 Intake, IV 150 600 225 Intake, Oral 240 240 600 60 120 Output, Urine 250 650 475 350 Physical Exam: cv: rrr lungs: clear abd: obese, soft no guarding to palp active bs wounds clean with packing ext: warm distal cms grossly intact no tenderness to palp Assessment/Plan Assessment/Plan doing much better plan advance diet per attending cont oob/ambulate Core Measures/Miscellaneous Venous Thromboembolism VTE Risk Factors: Age > 40, Surgery VTE Contraindications: No Contraindications VTE Diagnosis: No VTE Type: NONE VTE Confirmed by (Test): NONE Beta Ethan Is Beta Ethan a Home Med? No Antibiotics Is Patient on Antibiotics? Yes If Yes: prophylaxis
[2016-09-19] MEDS ORDERED: PERCOCET 5-3251 EACH PO (09:55)
--- NOTE | 2016-09-19 09:58 | Patient Discharge Instructions ---
Discharge Instructions General Discharge Information You were seen/treated for: colostomy You had these procedures: open colostomy reversal Watch for these problems: temp>101.5, increased wound drainage/redness, increased pain Call Surgeon to remove: Monument No bath, but you may shower: Yes Other wound care: keep wound clean and dry Diet Recommended Diet: mechanical soft diet Activity Activity Limited to: Weight bear as tolerated Other activity limits: no strenuous activity Acute Coronary Syndrome Inclusion Criteria At DC or during hospital stay patient has or had the following: ACS DIAGNOSIS No Discharge Core Measures Meds if any: Prescribed or Continued at Discharge Meds if any: NOT Prescribed or Continued at Discharge Congestive Heart Failure Inclusion Criteria At DC or during hospital stay patient has or had the following: CHF DIAGNOSIS No Discharge Core Measures Meds if any: Prescribed or Continued at Discharge Meds if any: NOT Prescribed or Continued at Discharge Cerebrovascular accident Inclusion Criteria At DC or during hospital stay patient has or had the following: CVA/TIA Diagnosis No Discharge Core Measures Meds if any: Prescribed or Continued at Discharge Meds if any: NOT Prescribed or Continued at Discharge Venous thromboembolism Inclusion Criteria VTE Diagnosis No VTE Type NONE VTE Confirmed by (Test) NONE Discharge Core Measures - Per Current guidelines, there needs to be overlap - treatment for the first 5 days of Warfarin therapy. - If discharged on Warfarin prior to 5 days of - overlap therapy, the patient will need to be - assessed for post discharge needs including - *Post discharge parental anticoagulation - *Warfarin and/or parental anticoagulation education - *Follow up date to check INR post discharge At least 5 days overlap therapy as Inpatient No Meds if any: Prescribed or Continued at Discharge Note: Overlap Therapy is Warfarin and Anticoagulant Meds if any: NOT Prescribed or Continued at Discharge
--- NOTE | 2016-09-19 10:36 | Operative Report ---
Operative/Inv Procedure Report Surgery Date: 09/16/16 Name of Procedure: Takedown and closure of colostomy Pre-Operative Diagnosis: Status post Pizarro's procedure Post-Operative Diagnosis: Same Estimated Blood Loss: less than 50ml Surgeon/Automobile Service Advisor: AUBREY MCCARTY,VERENICE Shaffer Anesthesia: general endotracheal tube Operative/Procedure Note Note: Patient was positioned supine, after induction of general anesthesia, a tap block was performed, IV antibiotics were given Mary catheter was placed and then she was repositioned into lithotomy and I irrigated her rectal stump with dilute Betadine solution pulling out a few large firm balls of stool in the process. The sutured shut the colostomy at the skin with silk suture .Then her abdomen was prepped and draped in usual sterile fashion. The midline scar from the Pizarro's was re-incised and lengthened inferiorly below the umbilicus about 5 cm more. This was deepened to the fascia where just underneath was mesh and we spent 2 hours at least gently sharply getting the underlying small bowel off of the mesh without an enterotomy. There were other adhesions deeper between the bowel loops themselves and between the bowel loops and the deeper peritoneum including the bladder. In this process the rectal stump was identified there was some normal-appearing distal sigmoid still available a few centimeters proximal to the peritoneal reflection. Having determined that this was suitable , we then turned our efforts to disconnect the colostomy from the abdominal wall first by incising around it through the skin deepening that circumferentially paying care not to injure the mesentery and then after maxing out the dissection from the side we then completed it from the inside. The very end of the ostomy was trimmed and then engaged with the pursestring device having sized it for a 31 EEA. Then the Bookwalter retractor was set up to make room retracting the small bowel up, you could feel some stool still in the rectal stump so carefully bimanually be put able to get it out and then an EEA was advanced through the anus and mated with the anvil and fired, then the integrity 8 of the anastomosis was checked with the proctoscope Shetley pumping air across the anastomosis, with a bowel Clamp proximally, while submerged under irrigation to check for leaks after several checks was confirmed there were none. There were 2 complete donuts. The abdomen was then irrigated and closed in layers using 2-0 Maxon for the fascia followed by interrupted Vicryl sutures subdermally leaving gaps for iodoform shira, in similar fashion the colostomy site was closed in layers using Vicryl for the peritoneum and then the Maxon for the fascia this site was wicked as well. Both incisions were reapproximated the skin level with renée and then covered with gauze and island dressings. EBL minimal lap and sponge counts correct wound expectancy was clean- contaminated, IV fluids crystalloid complications none, patient tolerated the procedure well and was returned to the recovery room in satisfactory condition.
--- NOTE | 2016-09-19 10:43 | Discharge Summary ---
Visit Information Visit Dates Admission Date: 09/16/16 Discharge Date: 09/19/2016 Hospital Course Course Attending Physician: DONNIE BURGOS MD Primary Care Physician: DEE HOLLINGSWORTH MD Hospital Course: Admitted for reversal of colostomy which proceeded well on Monday incisions were wicked, the following morning she felt well good urine output vital signs stable by the morning of postoperative day 2 she was passing gas later yesterday had a few small liquid bowel movements and then a more normal one this morning continually passing gas separately ambulating afebrile labs appropriate postop levels stable plan is to let her go home today and she can advance her diet herself I changed the dressing told her what to do with the shira she is to call us if she develops fevers new pain or change in the drainage and overall avoid constipation and straining. Allergies: Coded Allergies: aspirin (CONJUNCTIVAL SWELLING 04/23/16) cephalexin (From KEFLEX) (RASH 04/23/16) Uncoded Allergies: SEEDS (UNKNOWN 02/15/13) Disposition Summary Disposition Principal Diagnosis: Colostomy, history of diverticulitis Additional Diagnosis: None acute Discharge Disposition: home or self care Discharge Instructions General Discharge Information Code Status: Full Code Patient's Diet: We discussed avoiding large portions of high fiber or chewy candy Patient's Activity: We discussed avoiding straining Follow-Up Instructions/Appts: Next week in the office or sooner if issues arise Medications at Discharge Discharge Medications: Continue taking these medications: Amitriptyline HCl (Amitriptyline HCl) 25 MG TABLET 1 Tablet ORAL Every night Comments: Last Taken: 06/13/16 Time: 9:30 PM Bupropion HCl (Wellbutrin XL) 300 MG TAB.ER.24H 300 Milligram ORAL Every night Comments: Last Taken: 06/13/16 Time: 9:30 PM Escitalopram Oxalate (Lexapro) 20 MG TABLET 1 Tablet ORAL Every night Comments: Last Taken: 06/13/16 Time: 9:30 PM Start taking the following new medications: Oxycodone HCl/Acetaminophen (Percocet 5-325 MG Tablet) 5 MG-325 MG TABLET 1-2 Tablet ORAL EVERY 4 HOURS NEEDED as needed for PAIN SCALE 4-6 ( MODERATE) Qty = 36 No Refills Copies To: DONNIE BURGOS MD
== END 2016-09-19 11:15 | DRG 330 ==
LOC: SDA 01:57 → EDSTATUS 07:00 → STS 07:00 → ENRESERV 18:58 → 2NB 20:09
PROVIDERS: Nurse Practitioner; Physician Assistant Surgical; ADMIT Surgery
PROC: 0DQN0ZZ Repair Sigmoid Colon, Open Approach (ICD-10-PCS; principal; 2016-09-16)
PROC: 3E0T3BZ Introduction of Anesthetic Agent into Peripheral Nerves and Plexi, Percutaneous Approach (ICD-10-PCS; 2016-09-16)
DX: Z43.3 Encounter for attention to colostomy (principal); Z68.43 Body mass index [BMI] 50.0-59.9, adult; F32.9 Major depressive disorder, single episode, unspecified; F41.1 Generalized anxiety disorder; E66.01 Morbid (severe) obesity due to excess calories
CPT/HCPCS: 2NBSP; 36415; 82436; 87086; 88304; C9399; J0131; J0696; J1644; J1885; J2405; J7042